=== PATIENT | male | born 1965 | race Two or more races ===

== ENCOUNTER 2019-10-20 08:00 | Inpatient (IN) | payer OTHER ==
[~2019-10-20] VITALS: Ht 170.2 cm; Wt 111.0 kg
[2019-10-20 08:46] LABS: BASO % 0 % (0-3); EOS % 0 % (0-3); HEMATOCRIT 46.6 % (39.0-53.0); HEMOGLOBIN 16.5 g/dL (13.0-17.5); LYMPH # 0.6 x10^3/uL (1.0-4.8); LYMPH % 6 % (24-48); MEAN CORPUSCULAR HEMOGLOBIN 36 pg (25-35); MEAN CORPUSCULAR HGB CONC 35 g/dL (31-37); MEAN CORPUSCULAR VOLUME 101 fL (79-100); MONO # 0.4 x10^3/uL (0.0-1.1); MONO % 3 % (0-9); NEUT % 91 % (31-73); PLATELET COUNT 100 x10^3/uL (140-400); RED BLOOD COUNT 4.61 x10^6/uL (4.30-5.70); RED CELL DISTRIBUTION WIDTH 12.7 % (11.5-14.5); WHITE BLOOD COUNT 11.1 x10^3/uL (4.0-11.0)
[2019-10-20 08:58] LABS: PROTHROMBIN TIME PATIENT 17.4 SEC (11.7-14.0)
[2019-10-20 08:59] LABS: FIBRINOGEN 889 mg/dL (200-440)
[2019-10-20 09:00] LABS: PARTIAL THROMBOPLASTIN TIME 46 SEC (24-38)
[2019-10-20 09:02] LABS: D-DIMER 3.62 ug/mlFEU (0.00-0.50)
[2019-10-20 09:10] LABS: CALCIUM 7.9 mg/dL (8.5-10.1); CREATININE 1.2 mg/dL (0.7-1.3); GFR 63.6; POTASSIUM 3.3 mmol/L (3.5-5.1)
[2019-10-20 09:15] LABS: ALBUMIN 2.5 g/dL (3.4-5.0); ALBUMIN/GLOBULIN RATIO 0.5 (1.0-1.7); MAGNESIUM 1.5 mg/dL (1.8-2.4); TOTAL BILIRUBIN 2.6 mg/dL (0.2-1.0); TOTAL PROTEIN 7.4 g/dL (6.4-8.2)
--- NOTE | 2019-10-20 09:17 | RAD ---
PORTABLE CHEST 1V 10/20/2019 8:06 AM INDICATION: Chest pain, Covid positive COMPARISON: None available TECHNIQUE: Portable frontal view of the chest is provided. FINDINGS: The cardiomediastinal silhouette is within normal limits. There is elevation the right hemidiaphragm. Patchy airspace disease in the right lung base may represent pulmonary infiltrate in appropriate clinical setting. There are no significant pleural effusions. There is no pulmonary vascular congestion. No pneumothorax. No suspicious osseous abnormality. IMPRESSION: Patchy airspace disease at the right lung base may represent pulmonary infiltrate in the appropriate clinical setting. Recommend short-term follow-up two-view chest radiograph to ensure resolution. Electronically signed by: Viviana Jara MD (10/20/2019 9:14 AM) [facility]
[2019-10-20] MEDS ORDERED: IV NORMAL SALINE 1000ML BAG 1,000 ML IV ONE (09:45)
[2019-10-20] MEDS ORDERED: MAGNESIUM SULFATE 2GM 50 ML IV ONE (09:45)
[2019-10-20] MEDS ORDERED: AZITHRMYCN 500MG IVPB FOR OMNI 250 ML IV ONE (09:45)
[2019-10-20] MEDS ORDERED: cefTRIAXone IV Push 1 GM VIAL. IVP ONE (09:45)
[2019-10-20] MEDS ORDERED: POTASSIUM CHLORIDE 20 MEQ TABLET.ER. PO ONE ×2 (10:45)
[2019-10-20] MEDS ORDERED: DEXTROSE 50% 25 GM / 50ML DISP.SYRIN. IV PRN (10:45)
--- NOTE | 2019-10-20 10:45 | PDOC1 ---
History and Physical Date of Admission Date of Admission DATE: 10/20/19 TIME: 10:40 Identification/Chief Complaint Chief Complaint seen in er with soa, low grade temp at home 54 year old male who presented to ER today for evaluation of cough, trouble breathing for about 4 days. . Patient said when he coughs it hurts. Patient is a smoker. Patient is not on oxygen at home, patient denies any history of hypertension or diabetes. not sure if he been exposed to anybody who tested positive for COVID-19. Past Medical History Past Medical History Past Medical History Past Medical History: No Pertinent History Past Surgical History: No Surgical History Smoking Status: Current Every Day Smoker Alcohol Use: Occasionally FHX OBESITY Cardiovascular: No pertinent hx Endocrine: Diabetes Family History Family History: High Cholestrol, Hypertension Social History Smoke: <1 pack per day ALCOHOL: occassional Drugs: None Current Medications Current Medications Current Medications Ceftriaxone Sodium (Rocephin) 1 gm 1X ONCE IVP Last administered on 10/20/19at 10:23; Start 10/20/19 at 09:45; Stop 10/20/19 at 09:58; Status DC Azithromycin 250 ml @ 250 mls/hr 1X ONCE IV Last administered on 10/20/19at 09:45; Start 10/20/19 at 09:45; Stop 10/20/19 at 10:44 Sodium Chloride 1,000 ml @ 1,000 mls/hr 1X ONCE IV Last administered on 10/20/19at 10:20; Start 10/20/19 at 09:45; Stop 10/20/19 at 10:44 Magnesium Sulfate 50 ml @ 25 mls/hr 1X ONCE IV Last administered on 10/20/19at 10:21; Start 10/20/19 at 09:45; Stop 10/20/19 at 11:44 Allergies Allergies: Coded Allergies: No Known Drug Allergies (Unverified , 10/20/19) ROS Review of System difficulty breathing associated with subjective fevers, chills, Constitutional: Positive for fever or chills. [] Eyes: Denies change in visual acuity. [] HENT: Denies nasal congestion or sore throat. [] Respiratory: Positive for cough or shortness of breath. [] Cardiovascular: Positive for chest pain with cough , no edema. [] GI: Denies abdominal pain, nausea, vomiting, bloody stools or diarrhea. [] : Denies dysuria. [] Musculoskeletal: Denies back pain or joint pain. [] Integument: Denies rash. [] Neurologic: Denies headache, focal weakness or sensory changes. [] Endocrine: Denies polyuria or polydipsia. [] Lymphatic: Denies swollen glands. [] Psychiatric: Denies depression or anxiety. [] 14 pt ros otherwise neg General: YES: Chills ENDOCRINE: No: Breast Changes, Galactorrhea, Hair Pattern Changes, Hot Flashes, Malaise/lethargy, Mood Swings, Palpitations, Polydipsia/polyuria, Skin Changes, Temperature Intolerance, Unexpected Weight Changes, Other Respiratory: YES: Cough, Pleuritic Pain, Shortness of breath, SOB with excertion Cardiovascular: yes Chest Pain, yes Other (pain with cough) Gastrointestinal: No Nausea, No Vomiting, No Abdominal Pain, No Diarrhea, No Constipation, No Melena, No Hematochezia, No Other Physical Exam Physical Exam Constitutional: Well developed, well nourished, no acute distress, non-toxic appearance. [] HENT: Normocephalic, atraumatic, bilateral external ears normal, oropharynx moist, no oral exudates, nose normal. [] Eyes: PERRLA, EOMI, conjunctiva normal, no discharge. [] Neck: Normal range of motion, no tenderness, supple, no stridor. [] Cardiovascular:Heart rate regular rhythm, no murmur [] Lungs & Thorax: Bilateral breath sounds clear to auscultation [] Abdomen: Bowel sounds normal, soft, no tenderness, no masses, no pulsatile masses. [] Skin: Warm, dry, no erythema, no rash. [] Back: No tenderness, no CVA tenderness. [] Extremities: No tenderness, no cyanosis, no clubbing, ROM intact, no edema. [] Neurologic: Alert and oriented X 3, normal motor function, normal sensory function, no focal deficits noted. [] Psychologic: Affect normal, judgement normal, mood normal. [] General: Alert, Oriented X3, Cooperative, No acute distress HEENT: Mucous membr. moist/pink Heart: RRR, no murmurs Abdomen: Soft Rectal Exam: not examined PELVIC: Examination not indicated Extremities: No cyanosis, No edema Neuro: Normal speech, Cranial nerves 3-12 NL Psych/Mental Status: Mental status NL, Mood NL Vitals Vitals Vital Signs Date Time Temp Pulse Resp B/P (MAP) Pulse Ox O2 Delivery O2 Flow Rate FiO2 10/20/19 08:34 100.0 107 16 131/84 (100) 93 Room Air 100.0 Labs Labs Laboratory Tests Test 10/20/19 08:22 White Blood Count 11.1 x10^3/uL (4.0-11.0) Red Blood Count 4.61 x10^6/uL (4.30-5.70) Hemoglobin 16.5 g/dL (13.0-17.5) Hematocrit 46.6 % (39.0-53.0) Mean Corpuscular Volume 101 fL (79-100) Mean Corpuscular Hemoglobin 36 pg (25-35) Mean Corpuscular Hemoglobin Concent 35 g/dL (31-37) Red Cell Distribution Width 12.7 % (11.5-14.5) Platelet Count 100 x10^3/uL (140-400) Neutrophils (%) (Auto) 91 % (31-73) Lymphocytes (%) (Auto) 6 % (24-48) Monocytes (%) (Auto) 3 % (0-9) Eosinophils (%) (Auto) 0 % (0-3) Basophils (%) (Auto) 0 % (0-3) Neutrophils # (Auto) 10.0 x10^3/uL (1.8-7.7) Lymphocytes # (Auto) 0.6 x10^3/uL (1.0-4.8) Monocytes # (Auto) 0.4 x10^3/uL (0.0-1.1) Eosinophils # (Auto) 0.0 x10^3/uL (0.0-0.7) Basophils # (Auto) 0.0 x10^3/uL (0.0-0.2) Prothrombin Time 17.4 SEC (11.7-14.0) Prothromb Time International Ratio 1.5 (0.8-1.1) Activated Partial Thromboplast Time 46 SEC (24-38) Fibrinogen 889 mg/dL (200-440) D-Dimer (Lexie) 3.62 ug/mlFEU (0.00-0.50) Sodium Level 132 mmol/L (136-145) Potassium Level 3.3 mmol/L (3.5-5.1) Chloride Level 97 mmol/L (98-107) Carbon Dioxide Level 20 mmol/L (21-32) Anion Gap 15 (6-14) Blood Urea Nitrogen 17 mg/dL (8-26) Creatinine 1.2 mg/dL (0.7-1.3) Estimated GFR (Cockcroft-Gault) 63.6 BUN/Creatinine Ratio 14 (6-20) Glucose Level 263 mg/dL (70-99) Calcium Level 7.9 mg/dL (8.5-10.1) Magnesium Level 1.5 mg/dL (1.8-2.4) Total Bilirubin 2.6 mg/dL (0.2-1.0) Aspartate Amino Transf (AST/SGOT) 55 U/L (15-37) Alanine Aminotransferase (ALT/SGPT) 24 U/L (16-63) Alkaline Phosphatase 125 U/L (46-116) Troponin I Quantitative < 0.017 ng/mL (0.000-0.055) IH-Mcr-E-Type Natriuretic Peptide 208 pg/mL (0-124) Total Protein 7.4 g/dL (6.4-8.2) Albumin 2.5 g/dL (3.4-5.0) Albumin/Globulin Ratio 0.5 (1.0-1.7) Lipase 345 U/L (73-393) Laboratory Tests Test 10/20/19 08:22 White Blood Count 11.1 x10^3/uL (4.0-11.0) Red Blood Count 4.61 x10^6/uL (4.30-5.70) Hemoglobin 16.5 g/dL (13.0-17.5) Hematocrit 46.6 % (39.0-53.0) Mean Corpuscular Volume 101 fL (79-100) Mean Corpuscular Hemoglobin 36 pg (25-35) Mean Corpuscular Hemoglobin Concent 35 g/dL (31-37) Red Cell Distribution Width 12.7 % (11.5-14.5) Platelet Count 100 x10^3/uL (140-400) Neutrophils (%) (Auto) 91 % (31-73) Lymphocytes (%) (Auto) 6 % (24-48) Monocytes (%) (Auto) 3 % (0-9) Eosinophils (%) (Auto) 0 % (0-3) Basophils (%) (Auto) 0 % (0-3) Neutrophils # (Auto) 10.0 x10^3/uL (1.8-7.7) Lymphocytes # (Auto) 0.6 x10^3/uL (1.0-4.8) Monocytes # (Auto) 0.4 x10^3/uL (0.0-1.1) Eosinophils # (Auto) 0.0 x10^3/uL (0.0-0.7) Basophils # (Auto) 0.0 x10^3/uL (0.0-0.2) Prothrombin Time 17.4 SEC (11.7-14.0) Prothromb Time International Ratio 1.5 (0.8-1.1) Activated Partial Thromboplast Time 46 SEC (24-38) Fibrinogen 889 mg/dL (200-440) D-Dimer (Lexie) 3.62 ug/mlFEU (0.00-0.50) Sodium Level 132 mmol/L (136-145) Potassium Level 3.3 mmol/L (3.5-5.1) Chloride Level 97 mmol/L (98-107) Carbon Dioxide Level 20 mmol/L (21-32) Anion Gap 15 (6-14) Blood Urea Nitrogen 17 mg/dL (8-26) Creatinine 1.2 mg/dL (0.7-1.3) Estimated GFR (Cockcroft-Gault) 63.6 BUN/Creatinine Ratio 14 (6-20) Glucose Level 263 mg/dL (70-99) Calcium Level 7.9 mg/dL (8.5-10.1) Magnesium Level 1.5 mg/dL (1.8-2.4) Total Bilirubin 2.6 mg/dL (0.2-1.0) Aspartate Amino Transf (AST/SGOT) 55 U/L (15-37) Alanine Aminotransferase (ALT/SGPT) 24 U/L (16-63) Alkaline Phosphatase 125 U/L (46-116) Troponin I Quantitative < 0.017 ng/mL (0.000-0.055) QB-Von-M-Type Natriuretic Peptide 208 pg/mL (0-124) Total Protein 7.4 g/dL (6.4-8.2) Albumin 2.5 g/dL (3.4-5.0) Albumin/Globulin Ratio 0.5 (1.0-1.7) Lipase 345 U/L (73-393) Images Images PORTABLE CHEST 1V 10/20/2019 8:06 AM INDICATION: Chest pain, Covid positive COMPARISON: None available TECHNIQUE: Portable frontal view of the chest is provided. FINDINGS: The cardiomediastinal silhouette is within normal limits. There is elevation the right hemidiaphragm. Patchy airspace disease in the right lung base may represent pulmonary infiltrate in appropriate clinical setting. There are no significant pleural effusions. There is no pulmonary vascular congestion. No pneumothorax. No suspicious osseous abnormality. IMPRESSION: Patchy airspace disease at the right lung base may represent pulmonary infiltrate in the appropriate clinical setting. Recommend short-term follow-up two-view chest radiograph to ensure resolution. Electronically signed by: Marilee Jara MD (10/20/2019 9:14 AM) [facility] DICTATED and SIGNED BY: MARILEE JARA MD DATE: 10/20/19913 VTE Prophylaxis Ordered VTE Prophylaxis Devices: Yes VTE Pharmacological Prophylaxi: No Assessment/Plan Assessment/Plan IMPRESSION: Patchy airspace disease at the right lung base may represent pulmonary infiltrate /PNEUMONIA diabetes HYPOKALEMIA Morbid obesity transaminitis Tobacco abuse disorder acute hypoxic resp failure Mild acute kidney injury, likely due to dehydration. Could be related to COVID- 19. Hypomagnesemia. Moderate protein-calorie malnutrition. Thrombocytopenia. PLAN ADMIT COVID-19 SCREEN Consult pulm iv zithromax, rocephin blood cult o2 support dvt propphylaxis accuchecks ID CONSULT acute hepatitis dx panel 74 MIN pt exam, chart review, > 50% of time spent with exam, chart review, pt care coordination Justicifation of Admission Dx: Justifications for Admission: Justification of Admission Dx: Yes CHF: Sev. Electrolyte Abnormal Comminuty Aquired Pneumonia: Respiratory Findings Acute COPD Exacerbation: Acute COPD Exacerbation JOSHUA WASSERMAN MD Oct 20, 2019 10:45
--- NOTE | 2019-10-20 10:51 | PHYS DOC ---
Past Medical History Past Medical History: No Pertinent History Past Surgical History: No Surgical History Smoking Status: Current Every Day Smoker Alcohol Use: Occasionally General Adult EDM: Chief Complaint: CHEST PAIN HPI: HPI: Patient is a 54 year old male who presented to ER today for evaluation of cough, trouble breathing for about 4 days. He did not check his temperature at home. Patient said when he coughs it hurts. Patient is a smoker. Patient is not on oxygen at home, patient denies any history of hypertension or diabetes. Patient is not sure if he been exposed to anybody who tested positive for COVID- 19. Review of Systems: Review of Systems: Constitutional: Positive for fever or chills. [] Eyes: Denies change in visual acuity. [] HENT: Denies nasal congestion or sore throat. [] Respiratory: Positive for cough or shortness of breath. [] Cardiovascular: Positive for chest pain , no edema. [] GI: Denies abdominal pain, nausea, vomiting, bloody stools or diarrhea. [] : Denies dysuria. [] Musculoskeletal: Denies back pain or joint pain. [] Integument: Denies rash. [] Neurologic: Denies headache, focal weakness or sensory changes. [] Endocrine: Denies polyuria or polydipsia. [] Lymphatic: Denies swollen glands. [] Psychiatric: Denies depression or anxiety. [] Heart Score: HEART Score for Chest Pain: HEART Score for Chest Pain Response (Comments) Value History Slighlty/Non-Suspicious 0 ECG Nonspecific Repolarizatio 1 Age >45 - < 65 1 Risk Factors 1 or 2 Risk Factors 1 Troponin < Normal Limit 0 Total 3 Risk Factors: Risk Factors: DM, Current or recent (<one month) smoker, HTN, HLP, family history of CAD, obesity. Risk Scores: Score 0 - 3: 2.5% MACE over next 6 weeks - Discharge Home Score 4 - 6: 20.3% MACE over next 6 weeks - Admit for Clinical Observation Score 7 - 10: 72.7% MACE over next 6 weeks - Early Invasive Strategies Current Medications: Current Medications Medications (Trade) Dose Ordered Sig/Maureen Start Time Stop Time Status Last Admin Dose Admin Azithromycin 250 ml @ 250 mls/hr 1X ONCE 10/20/19 09:45 10/20/19 10:44 DC 10/20/19 09:45 250 MLS/HR Ceftriaxone Sodium (Rocephin) 1 gm 1X ONCE 10/20/19 09:45 10/20/19 09:58 DC 10/20/19 10:23 1 GM Dextrose (Dextrose 50%-Water Syringe) 12.5 gm PRN Q15MIN PRN 10/20/19 10:45 UNV Insulin Human Lispro (HumaLOG) 0-5 UNITS TIDWMEALS 10/20/19 12:00 UNV Magnesium Sulfate 50 ml @ 25 mls/hr 1X ONCE 10/20/19 09:45 10/20/19 11:44 10/20/19 10:21 25 MLS/HR Potassium Chloride (Klor-Con) 20 meq 1X ONCE 10/20/19 10:45 10/20/19 10:46 Sodium Chloride 1,000 ml @ 1,000 mls/hr 1X ONCE 10/20/19 09:45 10/20/19 10:44 DC 10/20/19 10:20 1,000 MLS/HR Allergies: Allergies: Allergies Coded Allergies Type Severity Reaction Last Updated Verified No Known Drug Allergies 10/20/19 No Physical Exam: PE: Constitutional: Well developed, well nourished, no acute distress, non-toxic appearance. [] HENT: Normocephalic, atraumatic, bilateral external ears normal, oropharynx moist, no oral exudates, nose normal. [] Eyes: PERRLA, EOMI, conjunctiva normal, no discharge. [] Neck: Normal range of motion, no tenderness, supple, no stridor. [] Cardiovascular rapid rate, regular rhythm, no murmur [] Lungs & Thorax: Bilateral breath sounds clear to auscultation [] Abdomen: Bowel sounds normal, soft, no tenderness, no masses, no pulsatile masses. [] Skin: Warm, dry, no erythema, no rash. [] Back: No tenderness, no CVA tenderness. [] Extremities: No tenderness, no cyanosis, no clubbing, ROM intact, no edema. [] Neurologic: Alert and oriented X 3, normal motor function, normal sensory function, no focal deficits noted. [] Psychologic: Affect normal, judgement normal, mood normal. [] Current Patient Data: Labs: Laboratory Tests Test 10/20/19 08:22 White Blood Count 11.1 x10^3/uL (4.0-11.0) H Red Blood Count 4.61 x10^6/uL (4.30-5.70) Hemoglobin 16.5 g/dL (13.0-17.5) Hematocrit 46.6 % (39.0-53.0) Mean Corpuscular Volume 101 fL (79-100) H Mean Corpuscular Hemoglobin 36 pg (25-35) H Mean Corpuscular Hemoglobin Concent 35 g/dL (31-37) Red Cell Distribution Width 12.7 % (11.5-14.5) Platelet Count 100 x10^3/uL (140-400) L Neutrophils (%) (Auto) 91 % (31-73) H Lymphocytes (%) (Auto) 6 % (24-48) L Monocytes (%) (Auto) 3 % (0-9) Eosinophils (%) (Auto) 0 % (0-3) Basophils (%) (Auto) 0 % (0-3) Neutrophils # (Auto) 10.0 x10^3/uL (1.8-7.7) H Lymphocytes # (Auto) 0.6 x10^3/uL (1.0-4.8) L Monocytes # (Auto) 0.4 x10^3/uL (0.0-1.1) Eosinophils # (Auto) 0.0 x10^3/uL (0.0-0.7) Basophils # (Auto) 0.0 x10^3/uL (0.0-0.2) Platelet Estimate Pending Prothrombin Time 17.4 SEC (11.7-14.0) H Prothrombin Time INR 1.5 (0.8-1.1) H Activated Partial Thromboplast Time 46 SEC (24-38) H Fibrinogen 889 mg/dL (200-440) H D-Dimer (Lexie) 3.62 ug/mlFEU (0.00-0.50) H Sodium Level 132 mmol/L (136-145) L Potassium Level 3.3 mmol/L (3.5-5.1) L Chloride Level 97 mmol/L (98-107) L Carbon Dioxide Level 20 mmol/L (21-32) L Anion Gap 15 (6-14) H Blood Urea Nitrogen 17 mg/dL (8-26) Creatinine 1.2 mg/dL (0.7-1.3) Estimated GFR (Cockcroft-Gault) 63.6 BUN/Creatinine Ratio 14 (6-20) Glucose Level 263 mg/dL (70-99) H Calcium Level 7.9 mg/dL (8.5-10.1) L Magnesium Level 1.5 mg/dL (1.8-2.4) L Total Bilirubin 2.6 mg/dL (0.2-1.0) H Aspartate Amino Transferase (AST) 55 U/L (15-37) H Alanine Aminotransferase (ALT) 24 U/L (16-63) Alkaline Phosphatase 125 U/L (46-116) H Troponin I Quantitative < 0.017 ng/mL (0.000-0.055) NB-Mml-G-Type Natriuretic Peptide 208 pg/mL (0-124) H Total Protein 7.4 g/dL (6.4-8.2) Albumin 2.5 g/dL (3.4-5.0) L Albumin/Globulin Ratio 0.5 (1.0-1.7) L Lipase 345 U/L (73-393) Laboratory Tests 10/20/19 08:22 Laboratory Tests 10/20/19 08:22 Vital Signs: Vital Signs Date Time Temp Pulse Resp B/P (MAP) Pulse Ox O2 Delivery O2 Flow Rate FiO2 10/20/19 08:34 100.0 107 16 131/84 (100) 93 Room Air 100.0 EKG: EKG: EKG was done at 820, heart rate of 111 bpm, sinus tachycardia, no ST segment evaluation. [] Radiology/Procedures: Radiology/Procedures: [facility] [id number] [place], [place] [id number] IMAGING REPORT Signed PATIENT: ZOEY STACYACCOUNT: [id number] : 1965 LOCATION: ER AGE: 54 SEX: M EXAM STATUS: REG ER ORD. PHYSICIAN: DAVID DE LEON DO REASON: chest pain, covid + PROCEDURE: PORTABLE CHEST 1V PORTABLE CHEST 1V 10/20/2019 8:06 AM INDICATION: Chest pain, Covid positive COMPARISON: None available TECHNIQUE: Portable frontal view of the chest is provided. FINDINGS: The cardiomediastinal silhouette is within normal limits. There is elevation the right hemidiaphragm. Patchy airspace disease in the right lung base may represent pulmonary infiltrate in appropriate clinical setting. There are no significant pleural effusions. There is no pulmonary vascular congestion. No pneumothorax. No suspicious osseous abnormality. IMPRESSION: Patchy airspace disease at the right lung base may represent pulmonary infiltrate in the appropriate clinical setting. Recommend short-term follow-up two-view chest radiograph to ensure resolution. Electronically signed by: Marilee Anders MD (10/20/2019 9:14 AM) [facility] DICTATED and SIGNED BY: MARILEE ANDERS MD DATE: 10/20/19913 Course & Med Decision Making: Course & Med Decision Making Pertinent Labs and Imaging studies reviewed. (See chart for details) [] Dragon Disclaimer: Dragon Disclaimer: This electronic medical record was generated, in whole or in part, using a voice recognition dictation system. Departure Departure Impression: Primary Impression: Pneumonia Additional Impression: Suspected 2019-nCoV infection Disposition: ADMITTED INPATIENT Admitting Physician: KALLIE (Dr. Gracia) Condition: STABLE Referrals: NON,STAFF (PCP) Justicifation of Admission Dx: Justifications for Admission: Justification of Admission Dx: Yes Comminuty Aquired Pneumonia: Hypoxemia DAVID DE LEON DO Oct 20, 2019 10:51
[2019-10-20] MEDS ORDERED: IBUPROFEN 400 MG TABLET. PO ONE (11:00)
[2019-10-20] MEDS ORDERED: 0.9 % SODIUM CHLORIDE 10 ML DISP.SYRIN. IV PRN (11:00)
[2019-10-20] MEDS ORDERED: SODIUM PHOSPHATES 19/7GM 133 ML ENEMA. PR PRN (11:00)
[2019-10-20] MEDS ORDERED: MAG HYDROX/ALUMINUM HYD/SIMETH 30 ML ORAL.SUSP PO PRN (11:00)
[2019-10-20] MEDS ORDERED: guaiFENesin ORAL 200 MG/10 ML LIQUID. PO PRN (11:00)
[2019-10-20] MEDS ORDERED: cloNIDine HCL 0.1 MG TABLET PO PRN (11:00)
[2019-10-20] MEDS ORDERED: ALBUTEROL SULFATE 2.5 MG/3 ML NEBU. NEB PRN (11:00)
[2019-10-20] MEDS ORDERED: ONDANSETRON PF 4 MG/2 ML VIAL. IV PRN (11:00)
[2019-10-20] MEDS ORDERED: DOCUSATE SODIUM 100 MG CAPSULE. PO PRN (11:00)
[2019-10-20 11:34] LABS: % BANDS 52 % (0-9); % EOS 1 % (0-5); % LYMPHS 11 % (24-48); % MONOS 3 % (0-10); % SEGS 33 % (35-66); PLT ESTIMATE ADEQUATE (ADEQUATE)
[2019-10-20] MEDS: INSULIN LISPRO 300 UNITS/3 ML VIAL. SQ SCH ×2 (12:00→17:22)
--- NOTE | 2019-10-20 12:46 | PDOC ---
Infectious Disease Note Vital Sign Vital Signs Vital Signs Date Time Temp Pulse Resp B/P (MAP) Pulse Ox O2 Delivery O2 Flow Rate FiO2 10/20/19 11:00 108 152/80 (104) 96 Nasal Cannula 3.0 10/20/19 08:34 100.0 16 100.0 Labs Lab Laboratory Tests Test 10/20/19 08:22 10/20/19 10:52 White Blood Count 11.1 x10^3/uL (4.0-11.0) Red Blood Count 4.61 x10^6/uL (4.30-5.70) Hemoglobin 16.5 g/dL (13.0-17.5) Hematocrit 46.6 % (39.0-53.0) Mean Corpuscular Volume 101 fL (79-100) Mean Corpuscular Hemoglobin 36 pg (25-35) Mean Corpuscular Hemoglobin Concent 35 g/dL (31-37) Red Cell Distribution Width 12.7 % (11.5-14.5) Platelet Count 100 x10^3/uL (140-400) Neutrophils (%) (Auto) 91 % (31-73) Lymphocytes (%) (Auto) 6 % (24-48) Monocytes (%) (Auto) 3 % (0-9) Eosinophils (%) (Auto) 0 % (0-3) Basophils (%) (Auto) 0 % (0-3) Neutrophils # (Auto) 10.0 x10^3/uL (1.8-7.7) Lymphocytes # (Auto) 0.6 x10^3/uL (1.0-4.8) Monocytes # (Auto) 0.4 x10^3/uL (0.0-1.1) Eosinophils # (Auto) 0.0 x10^3/uL (0.0-0.7) Basophils # (Auto) 0.0 x10^3/uL (0.0-0.2) Segmented Neutrophils % 33 % (35-66) Band Neutrophils % 52 % (0-9) Lymphocytes % 11 % (24-48) Monocytes % 3 % (0-10) Eosinophils % 1 % (0-5) Platelet Estimate Adequate (ADEQUATE) Prothrombin Time 17.4 SEC (11.7-14.0) Prothromb Time International Ratio 1.5 (0.8-1.1) Activated Partial Thromboplast Time 46 SEC (24-38) Fibrinogen 889 mg/dL (200-440) D-Dimer (Lexie) 3.62 ug/mlFEU (0.00-0.50) Sodium Level 132 mmol/L (136-145) Potassium Level 3.3 mmol/L (3.5-5.1) Chloride Level 97 mmol/L (98-107) Carbon Dioxide Level 20 mmol/L (21-32) Anion Gap 15 (6-14) Blood Urea Nitrogen 17 mg/dL (8-26) Creatinine 1.2 mg/dL (0.7-1.3) Estimated GFR (Cockcroft-Gault) 63.6 BUN/Creatinine Ratio 14 (6-20) Glucose Level 263 mg/dL (70-99) Calcium Level 7.9 mg/dL (8.5-10.1) Magnesium Level 1.5 mg/dL (1.8-2.4) Total Bilirubin 2.6 mg/dL (0.2-1.0) Aspartate Amino Transf (AST/SGOT) 55 U/L (15-37) Alanine Aminotransferase (ALT/SGPT) 24 U/L (16-63) Alkaline Phosphatase 125 U/L (46-116) Troponin I Quantitative < 0.017 ng/mL (0.000-0.055) LB-Bnc-D-Type Natriuretic Peptide 208 pg/mL (0-124) Total Protein 7.4 g/dL (6.4-8.2) Albumin 2.5 g/dL (3.4-5.0) Albumin/Globulin Ratio 0.5 (1.0-1.7) Lipase 345 U/L (73-393) Lactic Acid Level 3.0 mmol/L (0.4-2.0) Objective Assessment Pneumonia Lactic acidosis Bandemia Hyperbilirubinemia Thrombocytopenia Electrolyte imbalance Hyperglycemia Tobacco dependency Obesity Plan Plan of Care Rocephin and azithromycin Repeat labs in am Follow-up BC Electrolytes per primary Maintain aspiration precautions Droplet precautions till COVID-19 r/o D/w nursing Thank you [id number] Patient seen. Chart reviewed. Case discussed with [employer]. Agree with above plan/. FÉLIX BEATTY APRN Oct 20, 2019 12:46 ANDREAS QUINTANILLA MD Oct 20, 2019 20:47
[2019-10-20] MEDS: IV NORMAL SALINE 1000ML BAG 1,000 ML IV SCH (12:57)
[2019-10-20] MEDS: ENOXAPARIN 40 MG/0.4 ML SYRINGE. SQ SCH (12:58)
--- NOTE | 2019-10-20 13:15 | CONS ---
DATE OF CONSULTATION: 10/20/2019 Nathan Santos APRN, dictating for Andreas Quintanilla MD, Infectious Disease. REFERRING PHYSICIAN: Elver Gracia MD REASON FOR CONSULTATION: Pneumonia. HISTORY OF PRESENT ILLNESS: This patient is a 54-year-old male with no significant past medical history, who over the last 4 days has developed worsening cough, difficulty breathing associated with subjective fevers, chills, and sweats. He took Tylenol, ibuprofen and cough medicine with minimal relief. On arrival to the ER, he had a temperature of 100.0. WBC 11,100; segs 33%; bands 52%. Lactic acid 3.0. He was placed on 3 liters of oxygen. Chest x-ray showed patchy airspace disease in the right lung base. He was dosed with ceftriaxone and azithromycin. The patient says he is feeling a little bit better. His oxygen sats are up to 96% on 2 liters. He is having less work of breathing. He has complaints of mild localized chest discomfort, sore throat and occasional headache. He denies sinus congestion or drainage. He denies hospitalizations or antibiotic use within the last year. He says his family members are well. He has no known exposure to COVID-19. He denies traveling. PAST MEDICAL HISTORY: Obesity. PAST SURGICAL HISTORY: Denies surgical history. FAMILY HISTORY: Positive for diabetes. SOCIAL HISTORY: The patient is and lives at home. He has 2 sons. He also cares for a couple cats and dogs. He is a smoker and drinks 2-4 cans of beer a week. He is currently employed with waste management. ALLERGIES: No known drug allergies. MEDICATIONS: Reviewed on JUL and includes one-time dose of azithromycin and one-time dose of ceftriaxone. REVIEW OF SYSTEMS: Per HPI, otherwise all other review of systems are negative. PHYSICAL EXAMINATION: VITAL SIGNS: Temperature 100.0, blood pressure 152/80, heart rate 108, respiratory rate 16, pulse oximetry is 96% on 3 liters oxygen. BMI 38.3. GENERAL: The patient is propped up in bed, alert, appears comfortable. HEENT: Pupils equally round. Oropharynx: [place] and moist. No lesions seen. NECK: Supple. LUNGS: Coarse right lower lobe. No accessory muscle use. HEART: S1 and S2, regular. ABDOMEN: Obese, soft, nontender. No rebound. Bowel sounds present. EXTREMITIES: No gross edema or cyanosis. SKIN: Warm to touch. No signs of rash. NEUROLOGIC: Alert and answering questions appropriately. LABORATORY DATA: WBC 11.1; hemoglobin 16.5; platelets 100,000; segs 33%; bands 52%. Sodium 132, potassium 3.3, creatinine 1.2, BUN 17, glucose 263. Lactic acid 3.0. Total bilirubin 2.6. Magnesium 1.5, calcium 7.9. AST 55, ALT 24, alkaline phosphatase 125. Troponin less than 0.017. BNP 208. Albumin 2.5. Lipase 345. COVID-19 and blood cultures pending. Chest x-ray showed patchy airspace disease in the right lung base. ASSESSMENT: 1. Pneumonia. 2. Lactic acidosis. 3. Bandemia. 4. Hyperbilirubinemia. 5. Thrombocytopenia. 6. Electrolyte imbalances. 7. Hyperglycemia. 8. Tobacco dependency. 9. Obesity. PLAN: 1. Continue ceftriaxone and azithromycin. 2. We will repeat labs in the morning. 3. Follow up on blood culture results. 4. Maintain aspiration precautions. 5. Droplet precautions until COVID-19 rule out. 6. Discussed with nursing. Thank you, Dr. Gracia, for asking us to participate in this patient's care. Should you have further questions or concerns, please call. ANDREAS QUINTANILLA MD DR: SIMON/autumn JOB#: [id number] / [id number]
--- NOTE | 2019-10-20 14:12 | CONS ---
DATE OF CONSULTATION: PULMONARY CONSULTATION ATTENDING PHYSICIAN: Dr. Gracia. REASON FOR CONSULTATION: Pneumonia, hypoxia, suspected COVID. HISTORY OF PRESENT ILLNESS: The patient is a 54-year-old morbidly obese male who speaks minimal Panamanian. His BMI is 38.3. He was brought into the hospital complaining of cough for 3-4 days. He had a fever He had a chest wall pain with coughing The patient is a smoker, smoked at least for 30 years. He is not on home oxygen. He had some nausea and diarrhea. Denies any history of sleep apnea. Denies any obvious exposure to COVID-19. He is a lunch truck operator by profession. Chest x-ray was reviewed and it shows a faint infiltrate, interstitial type at the right base. The patient initially was on room air, but now requiring 3 liters of oxygen with saturation of 96%. I was able to do the tele-consultation with the help of Serbian interpretation. PAST MEDICAL HISTORY: Significant for tobaccoism, suspect underlying COPD, underlying obesity. SURGERIES: No recent surgery. SOCIAL HISTORY: Smoker for 30+ years and occasional alcohol. REVIEW OF SYSTEMS: Unable to obtain due to language barrier, but pertinent positives discussed in my history of present illness. MEDICATIONS: Reviewed as listed in the MRAD including antibiotics and Lovenox for DVT prophylaxis. PHYSICAL EXAMINATION: VITAL SIGNS: T-max is 100, blood pressure 152/80, pulse ox 96% on 3 liters. GENERAL: Visual exam done due to COVID pandemic. No obvious rash. No obvious respiratory distress. He is obese. EXTREMITIES: No leg edema. LABORATORY DATA: Reviewed. White cell count 11.1, hemoglobin 15.6 and platelets are 100. BUN 17, creatinine 1.2, bilirubin 2.6, AST 55 and ALT 24. Albumin 2.5. IMPRESSION: 1. Acute hypoxic respiratory failure secondary to suspected COVID-19 pneumonia. 2. Underlying obesity. 3. Long history of tobacco use, suspect underlying chronic obstructive pulmonary disease. 4. Abnormal LFTs, could be related to COVID infection. 5. Mild acute kidney injury, likely due to dehydration. Could be related to COVID-19. 6. Hypomagnesemia. 7. Moderate protein-calorie malnutrition. 8. Thrombocytopenia. RECOMMENDATIONS: 1. Continue with present oxygen to keep saturation 92 and above. 2. Broad spectrum antibiotic per Infectious Disease. 3. Lovenox for DVT prophylaxis. 4. Monitor LFTs. 5. Monitor platelet count. 6. IV hydration. 7. COVID-19 has been ordered and is pending. 8. We will follow the response to treatment. 9. Discussed with RN. This patient was seen during the COVID-19 pandemic. COVID-19 diagnosis was suspected on initial presentation. BRANDEN PARTIDA MD DR: FABIENNE/autumn JOB#: [id number] / [id number]
[2019-10-20 15:08] VITALS: BP 107/70
[2019-10-20 19:20] VITALS: BP 145/80
[2019-10-20] MEDS: ACETAMINOPHEN 325 MG TABLET. PO PRN (19:28)
[2019-10-20 22:50] VITALS: BP 128/74
--- NOTE | 2019-10-20 23:40 | NUR ---
RN able to sit down to chart on pt - when charting sepsis - RN noted that pt triggered severe sepsis. Sepsis RN paged. NohemyRN returned call - this RN made Nohemy of pt status and triggering severe sepsis. Nohemy suggested ordering a STAT blood culture and lactic. Also suggested calling Dr Molina to see if any further orders needed. At [phone] - Dr rn documentation specialist paged using number . No call returned. Temp at start of shift was 102.1 - HR low 100's, RR 40, BP 145/80, O2 sats on 1.5L in the low 90's. RN bumped O2 up to 3L at start of shift - sats bumped up to mid 90's. Pt given 650 mg of tylenol at that time. Upon recheck of temp an hour or so later - temp 100.4. HR down to upper 90's. RR still elevated in the 30's- pt reported feeling much better. Will continue to monitor pt status.
[2019-10-21 00:30] LABS: CALCIUM 7.8 mg/dL (8.5-10.1); CREATININE 1.1 mg/dL (0.7-1.3); GFR 70.3; POTASSIUM 3.7 mmol/L (3.5-5.1)
[2019-10-21 00:35] LABS: ALBUMIN 2.2 g/dL (3.4-5.0); ALBUMIN/GLOBULIN RATIO 0.5 (1.0-1.7); TOTAL BILIRUBIN 2.2 mg/dL (0.2-1.0); TOTAL PROTEIN 6.8 g/dL (6.4-8.2)
[2019-10-21] MEDS: IV NORMAL SALINE 1000ML BAG 1,000 ML IV SCH ×4 (02:40→22:58)
[2019-10-21 02:58] VITALS: BP 119/87
[2019-10-21 07:57] VITALS: BP 140/76
[2019-10-21] MEDS: INSULIN LISPRO 300 UNITS/3 ML VIAL. SQ SCH ×3 (08:00→17:13)
[2019-10-21] MEDS: AZITHROMYCIN 250 MG TABLET. PO SCH (08:28)
[2019-10-21] MEDS: ACETAMINOPHEN 325 MG TABLET. PO PRN ×3 (08:28→18:05)
--- NOTE | 2019-10-21 09:03 | EKG ---
[facility] [address] [place] [address] Test Date: 2019-10-20 Test Time: 08:18:11 Pat Name: ZOEY STACY Department: Room: 673 1 Gender: M Probe Operator: ROCHELLE : 1965 Requested By: DAVID DE LEON Order Number: [id number] Reading MD: Osmar Medeiros MD Measurements Intervals [place] Rate: 111 P: -16 [place]: 104 QRS: 48 QRSD: 98 T: 14 QT: 330 QTc: 452 Interpretive Statements SINUS TACHYCARDIA Electronically Signed On 10-24-2019 11:50:27 CDT by Osmar Medeiros MD
--- NOTE | 2019-10-21 09:39 | PDOC ---
Infectious Disease Note Subjective: Subjective Pt continues to have some cough Feels better Remains febrile O2 requirement increased to 3 L O2 by nasal cannula Vital Signs: Vital Signs Vital Signs Date Time Temp Pulse Resp B/P (MAP) Pulse Ox O2 Delivery O2 Flow Rate FiO2 10/21/19 08:00 Nasal Cannula 3.0 10/21/19 07:57 100.5 108 30 140/76 (97) 98 100.5 Physical Exam: PHYSICAL EXAM GENERAL: The patient is alert, appears comfortable. HEENT: Pupils equally round. Oropharynx: [place] and moist. No lesions seen. NECK: Supple. LUNGS: Coarse right lower lobe. No accessory muscle use. HEART: S1 and S2, regular. ABDOMEN: Obese, soft, nontender. No rebound. Bowel sounds present. EXTREMITIES: No gross edema or cyanosis. SKIN: Warm to touch. No signs of rash. NEUROLOGIC: Alert and answering questions appropriately. Medications: Inpatient Meds: Current Medications Medications (Trade) Dose Ordered Sig/Maureen Start Time Stop Time Status Last Admin Dose Admin Acetaminophen (Tylenol) 650 mg PRN Q4HRS PRN 10/20/19 11:00 10/21/19 08:28 650 MG Al Hydroxide/Mg Hydroxide (Mylanta Plus Xs) 30 ml PRN DAILY PRN 10/20/19 11:00 Albuterol Sulfate (Ventolin Neb Soln) 2.5 mg PRN Q4HRS PRN 10/20/19 11:00 Azithromycin (Zithromax) 500 mg DAILY 10/21/19 09:00 10/23/19 09:01 10/21/19 08:28 500 MG Ceftriaxone Sodium (Rocephin) 1 gm Q24H 10/21/19 10:00 Clonidine HCl (Catapres) 0.1 mg PRN Q6HRS PRN 10/20/19 11:00 Dextrose (Dextrose 50%-Water Syringe) 12.5 gm PRN Q15MIN PRN 10/20/19 10:45 Docusate Sodium (Colace) 100 mg PRN BID PRN 10/20/19 11:00 Enoxaparin Sodium (Lovenox 40mg Syringe) 40 mg Q24H 10/20/19 11:00 10/20/19 12:58 40 MG Guaifenesin (Robitussin) 200 mg PRN Q4HRS PRN 10/20/19 11:00 Ibuprofen (Motrin) 800 mg 1X ONCE 10/20/19 11:00 10/20/19 11:01 DC 10/20/19 10:56 800 MG Insulin Human Lispro (HumaLOG) 0-5 UNITS TIDWMEALS 10/20/19 12:00 10/20/19 17:22 4 UNITS Magnesium Sulfate 50 ml @ 25 mls/hr 1X ONCE 10/20/19 09:45 10/20/19 11:44 DC 10/20/19 10:21 25 MLS/HR Ondansetron HCl (Zofran) 4 mg PRN Q4HRS PRN 10/20/19 11:00 10/20/19 13:03 4 MG Potassium Chloride (Klor-Con) 20 meq 1X ONCE 10/20/19 10:45 10/20/19 10:48 DC 10/20/19 13:00 20 MEQ Sodium Monofluorophosphate (Fleet Adult) 133 ml PRN DAILY PRN 10/20/19 11:00 Sodium Chloride 1,000 ml @ 100 mls/hr Q10H 10/20/19 10:56 10/21/19 02:40 100 MLS/HR Sodium Chloride (Normal Saline Flush) 3 ml QSHIFT PRN 10/20/19 11:00 Labs: Lab Laboratory Tests Test 10/20/19 10:52 10/20/19 15:00 10/20/19 16:23 10/20/19 23:45 Lactic Acid Level 3.0 mmol/L (0.4-2.0) 2.2 mmol/L (0.4-2.0) 1.8 mmol/L (0.4-2.0) Glucose (Fingerstick) 265 mg/dL (70-99) Sodium Level 131 mmol/L (136-145) Potassium Level 3.7 mmol/L (3.5-5.1) Chloride Level 101 mmol/L (98-107) Carbon Dioxide Level 21 mmol/L (21-32) Anion Gap 9 (6-14) Blood Urea Nitrogen 22 mg/dL (8-26) Creatinine 1.1 mg/dL (0.7-1.3) Estimated GFR (Cockcroft-Gault) 70.3 BUN/Creatinine Ratio 20 (6-20) Glucose Level 193 mg/dL (70-99) Calcium Level 7.8 mg/dL (8.5-10.1) Total Bilirubin 2.2 mg/dL (0.2-1.0) Aspartate Amino Transf (AST/SGOT) 68 U/L (15-37) Alanine Aminotransferase (ALT/SGPT) 28 U/L (16-63) Alkaline Phosphatase 146 U/L (46-116) Total Protein 6.8 g/dL (6.4-8.2) Albumin 2.2 g/dL (3.4-5.0) Albumin/Globulin Ratio 0.5 (1.0-1.7) Test 10/21/19 02:50 10/21/19 08:05 Glucose (Fingerstick) 168 mg/dL (70-99) 138 mg/dL (70-99) Objective: Assessment: 1. Pneumonia. 2. Lactic acidosis.Leucocytosis 3. Bandemia. 4. Abnormal LFTs, Hyperbilirubinemia. 5. Thrombocytopenia. 6. Electrolyte imbalances. 7. Hyperglycemia. 8. Tobacco dependency. 9. Obesity. Plan: Plan of Care Change Rocephin to Zosyn Continue azithromycin Repeat labs in am Follow-up BC Maintain aspiration precautions COVID-19 pending Droplet precautions till COVID-19 r/o D/w nursing LAZ BRIONES MD Oct 21, 2019 09:39
[2019-10-21] MEDS ORDERED: cefTRIAXone IV Push 1 GM VIAL. IVP SCH (10:00)
[2019-10-21] MEDS: ENOXAPARIN 40 MG/0.4 ML SYRINGE. SQ SCH (10:13)
[2019-10-21 11:21] VITALS: BP 144/78
--- NOTE | 2019-10-21 12:00 | NUR ---
Patient is febrile, triggers sepsis screen, on IV fluids, ceftriaxone and rocephin started per order. ID service updated, ceftrixone shifted to pip tazo, tylenol given per order. We'll continue to monitor.
[2019-10-21] MEDS: PIPERACILLIN/TAZOBACTAM 3.375 GM in IV NORMAL SALINE 50ML 50 ML IV SCH ×3 (12:19→23:33)
--- NOTE | 2019-10-21 12:44 | PDOC ---
PULMONARY PROGRESS NOTES Subjective no soa Vitals Vital Signs Date Time Temp Pulse Resp B/P (MAP) Pulse Ox O2 Delivery O2 Flow Rate FiO2 10/21/19 11:21 100.9 103 28 144/78 (100) 96 Nasal Cannula 3.0 100.9 Comments visual exam done due to COVID 19 suspicion no soa, no rash no edema General: Alert, No acute distress Labs Laboratory Tests Test 10/20/19 08:22 10/20/19 10:52 10/20/19 15:00 10/20/19 16:23 White Blood Count 11.1 x10^3/uL (4.0-11.0) Red Blood Count 4.61 x10^6/uL (4.30-5.70) Hemoglobin 16.5 g/dL (13.0-17.5) Hematocrit 46.6 % (39.0-53.0) Mean Corpuscular Volume 101 fL (79-100) Mean Corpuscular Hemoglobin 36 pg (25-35) Mean Corpuscular Hemoglobin Concent 35 g/dL (31-37) Red Cell Distribution Width 12.7 % (11.5-14.5) Platelet Count 100 x10^3/uL (140-400) Neutrophils (%) (Auto) 91 % (31-73) Lymphocytes (%) (Auto) 6 % (24-48) Monocytes (%) (Auto) 3 % (0-9) Eosinophils (%) (Auto) 0 % (0-3) Basophils (%) (Auto) 0 % (0-3) Neutrophils # (Auto) 10.0 x10^3/uL (1.8-7.7) Lymphocytes # (Auto) 0.6 x10^3/uL (1.0-4.8) Monocytes # (Auto) 0.4 x10^3/uL (0.0-1.1) Eosinophils # (Auto) 0.0 x10^3/uL (0.0-0.7) Basophils # (Auto) 0.0 x10^3/uL (0.0-0.2) Segmented Neutrophils % 33 % (35-66) Band Neutrophils % 52 % (0-9) Lymphocytes % 11 % (24-48) Monocytes % 3 % (0-10) Eosinophils % 1 % (0-5) Platelet Estimate Adequate (ADEQUATE) Prothrombin Time 17.4 SEC (11.7-14.0) Prothromb Time International Ratio 1.5 (0.8-1.1) Activated Partial Thromboplast Time 46 SEC (24-38) Fibrinogen 889 mg/dL (200-440) D-Dimer (Lexie) 3.62 ug/mlFEU (0.00-0.50) Sodium Level 132 mmol/L (136-145) Potassium Level 3.3 mmol/L (3.5-5.1) Chloride Level 97 mmol/L (98-107) Carbon Dioxide Level 20 mmol/L (21-32) Anion Gap 15 (6-14) Blood Urea Nitrogen 17 mg/dL (8-26) Creatinine 1.2 mg/dL (0.7-1.3) Estimated GFR (Cockcroft-Gault) 63.6 BUN/Creatinine Ratio 14 (6-20) Glucose Level 263 mg/dL (70-99) Calcium Level 7.9 mg/dL (8.5-10.1) Magnesium Level 1.5 mg/dL (1.8-2.4) Total Bilirubin 2.6 mg/dL (0.2-1.0) Aspartate Amino Transf (AST/SGOT) 55 U/L (15-37) Alanine Aminotransferase (ALT/SGPT) 24 U/L (16-63) Alkaline Phosphatase 125 U/L (46-116) Troponin I Quantitative < 0.017 ng/mL (0.000-0.055) JC-Iqu-T-Type Natriuretic Peptide 208 pg/mL (0-124) Total Protein 7.4 g/dL (6.4-8.2) Albumin 2.5 g/dL (3.4-5.0) Albumin/Globulin Ratio 0.5 (1.0-1.7) Lipase 345 U/L (73-393) Hepatitis A IgM Antibody Nonreactive (Nonreactive) Hepatitis B Surface Antigen Nonreactive (Nonreactive) Hepatitis B Core IgM Antibody Nonreactive (Nonreactive) Hepatitis C IgG Antibody Nonreactive (Nonreactive) Lactic Acid Level 3.0 mmol/L (0.4-2.0) 2.2 mmol/L (0.4-2.0) Glucose (Fingerstick) 265 mg/dL (70-99) Test 10/20/19 23:45 10/21/19 02:50 10/21/19 08:05 10/21/19 11:43 Sodium Level 131 mmol/L (136-145) Potassium Level 3.7 mmol/L (3.5-5.1) Chloride Level 101 mmol/L (98-107) Carbon Dioxide Level 21 mmol/L (21-32) Anion Gap 9 (6-14) Blood Urea Nitrogen 22 mg/dL (8-26) Creatinine 1.1 mg/dL (0.7-1.3) Estimated GFR (Cockcroft-Gault) 70.3 BUN/Creatinine Ratio 20 (6-20) Glucose Level 193 mg/dL (70-99) Lactic Acid Level 1.8 mmol/L (0.4-2.0) Calcium Level 7.8 mg/dL (8.5-10.1) Total Bilirubin 2.2 mg/dL (0.2-1.0) Aspartate Amino Transf (AST/SGOT) 68 U/L (15-37) Alanine Aminotransferase (ALT/SGPT) 28 U/L (16-63) Alkaline Phosphatase 146 U/L (46-116) Total Protein 6.8 g/dL (6.4-8.2) Albumin 2.2 g/dL (3.4-5.0) Albumin/Globulin Ratio 0.5 (1.0-1.7) Glucose (Fingerstick) 168 mg/dL (70-99) 138 mg/dL (70-99) 207 mg/dL (70-99) Laboratory Tests Test 10/20/19 15:00 10/20/19 16:23 10/20/19 23:45 10/21/19 02:50 Lactic Acid Level 2.2 mmol/L (0.4-2.0) 1.8 mmol/L (0.4-2.0) Glucose (Fingerstick) 265 mg/dL (70-99) 168 mg/dL (70-99) Sodium Level 131 mmol/L (136-145) Potassium Level 3.7 mmol/L (3.5-5.1) Chloride Level 101 mmol/L (98-107) Carbon Dioxide Level 21 mmol/L (21-32) Anion Gap 9 (6-14) Blood Urea Nitrogen 22 mg/dL (8-26) Creatinine 1.1 mg/dL (0.7-1.3) Estimated GFR (Cockcroft-Gault) 70.3 BUN/Creatinine Ratio 20 (6-20) Glucose Level 193 mg/dL (70-99) Calcium Level 7.8 mg/dL (8.5-10.1) Total Bilirubin 2.2 mg/dL (0.2-1.0) Aspartate Amino Transf (AST/SGOT) 68 U/L (15-37) Alanine Aminotransferase (ALT/SGPT) 28 U/L (16-63) Alkaline Phosphatase 146 U/L (46-116) Total Protein 6.8 g/dL (6.4-8.2) Albumin 2.2 g/dL (3.4-5.0) Albumin/Globulin Ratio 0.5 (1.0-1.7) Test 10/21/19 08:05 10/21/19 11:43 Glucose (Fingerstick) 138 mg/dL (70-99) 207 mg/dL (70-99) Impression . 1. Acute hypoxic respiratory failure secondary to suspected COVID-19 pneumonia. 2. Underlying obesity. 3. Long history of tobacco use, suspect underlying chronic obstructive pulmonary disease. 4. Abnormal LFTs, could be related to COVID infection. 5. Mild acute kidney injury, likely due to dehydration. Could be related to COVID-19. 6. Hypomagnesemia. 7. Moderate protein-calorie malnutrition. 8. Thrombocytopenia. Plan . 1. Continue with present oxygen to keep saturation 92 and above. 2. Broad spectrum antibiotic per Infectious Disease. 3. Lovenox for DVT prophylaxis. 4. Monitor LFTs. 5. Monitor platelet count. 6. Monitor fever 7. COVID-19 has been ordered and is pending. 8. We will follow the response to treatment. 9. Discussed with RN. This patient was seen during the COVID-19 pandemic. COVID-19 diagnosis was suspected on initial presentation. BRANDEN PARTIDA MD Oct 21, 2019 12:44
[2019-10-21 15:43] VITALS: BP 129/80
--- NOTE | 2019-10-21 16:48 | NUR ---
SW following for discharge planning. Reviewed pt's chart and spoke with RN. Spoke with pt who stated he lives at home with his and children. Pt stated he works and plans to return when able. Pt on 2l 02. Pt stated he is on 02 at home. Pt has a fever of 101. Pt on IV abx. COVID testing pending. SW to continue following.
--- NOTE | 2019-10-21 16:56 | PDOC ---
PROGRESS NOTES Chief Complaint Chief Complaint Patchy airspace disease at the right lung base may represent pulmonary infiltrate /PNEUMONIA diabetes Hypokalemia Morbid obesity transaminitis Tobacco abuse disorder Acute hypoxic resp failure Mild acute kidney injury, likely due to dehydration. Could be related to COVID- 19. Hypomagnesemia. Moderate protein-calorie malnutrition. Thrombocytopenia. PLAN ADMIT COVID-19 SCREEN Consult pulm iv zithromax, rocephin blood cult o2 support dvt propphylaxis accuchecks ID CONSULT acute hepatitis dx panel History of Present Illness History of Present Illness 10/21/2019 Patient with no acute events reported overnight, no fever or chills, seems to be stable, no new complaints. Vitals Vitals Vital Signs Date Time Temp Pulse Resp B/P (MAP) Pulse Ox O2 Delivery O2 Flow Rate FiO2 10/21/19 15:43 101.8 103 30 129/80 (96) 94 Nasal Cannula 2.0 101.8 Physical Exam Physical Exam GENERAL: The patient is alert, appears comfortable. HEENT: Pupils equally round. Oropharynx: [place] and moist. No lesions seen. NECK: Supple. LUNGS: Coarse right lower lobe. No accessory muscle use. HEART: S1 and S2, regular. ABDOMEN: Obese, soft, nontender. No rebound. Bowel sounds present. EXTREMITIES: No gross edema or cyanosis. SKIN: Warm to touch. No signs of rash. NEUROLOGIC: Alert and answering questions appropriately. General: Alert, Oriented X3, Cooperative, No acute distress Abdomen: Soft Extremities: No cyanosis, No edema Labs LABS Laboratory Tests Test 10/20/19 23:45 10/21/19 02:50 10/21/19 08:05 10/21/19 11:43 Sodium Level 131 mmol/L (136-145) Potassium Level 3.7 mmol/L (3.5-5.1) Chloride Level 101 mmol/L (98-107) Carbon Dioxide Level 21 mmol/L (21-32) Anion Gap 9 (6-14) Blood Urea Nitrogen 22 mg/dL (8-26) Creatinine 1.1 mg/dL (0.7-1.3) Estimated GFR (Cockcroft-Gault) 70.3 BUN/Creatinine Ratio 20 (6-20) Glucose Level 193 mg/dL (70-99) Lactic Acid Level 1.8 mmol/L (0.4-2.0) Calcium Level 7.8 mg/dL (8.5-10.1) Total Bilirubin 2.2 mg/dL (0.2-1.0) Aspartate Amino Transf (AST/SGOT) 68 U/L (15-37) Alanine Aminotransferase (ALT/SGPT) 28 U/L (16-63) Alkaline Phosphatase 146 U/L (46-116) Total Protein 6.8 g/dL (6.4-8.2) Albumin 2.2 g/dL (3.4-5.0) Albumin/Globulin Ratio 0.5 (1.0-1.7) Glucose (Fingerstick) 168 mg/dL (70-99) 138 mg/dL (70-99) 207 mg/dL (70-99) Assessment and Plan Assessmemt and Plan Problems Medical Problems: (1) Pneumonia Status: Acute (2) Suspected 2019-nCoV infection Status: Acute Comment Review of Relevant I have reviewed the following items laura (where applicable) has been applied. Labs Laboratory Tests Test 10/20/19 08:22 10/20/19 08:30 10/20/19 10:52 10/20/19 15:00 White Blood Count 11.1 x10^3/uL (4.0-11.0) Red Blood Count 4.61 x10^6/uL (4.30-5.70) Hemoglobin 16.5 g/dL (13.0-17.5) Hematocrit 46.6 % (39.0-53.0) Mean Corpuscular Volume 101 fL (79-100) Mean Corpuscular Hemoglobin 36 pg (25-35) Mean Corpuscular Hemoglobin Concent 35 g/dL (31-37) Red Cell Distribution Width 12.7 % (11.5-14.5) Platelet Count 100 x10^3/uL (140-400) Neutrophils (%) (Auto) 91 % (31-73) Lymphocytes (%) (Auto) 6 % (24-48) Monocytes (%) (Auto) 3 % (0-9) Eosinophils (%) (Auto) 0 % (0-3) Basophils (%) (Auto) 0 % (0-3) Neutrophils # (Auto) 10.0 x10^3/uL (1.8-7.7) Lymphocytes # (Auto) 0.6 x10^3/uL (1.0-4.8) Monocytes # (Auto) 0.4 x10^3/uL (0.0-1.1) Eosinophils # (Auto) 0.0 x10^3/uL (0.0-0.7) Basophils # (Auto) 0.0 x10^3/uL (0.0-0.2) Segmented Neutrophils % 33 % (35-66) Band Neutrophils % 52 % (0-9) Lymphocytes % 11 % (24-48) Monocytes % 3 % (0-10) Eosinophils % 1 % (0-5) Platelet Estimate Adequate (ADEQUATE) Prothrombin Time 17.4 SEC (11.7-14.0) Prothromb Time International Ratio 1.5 (0.8-1.1) Activated Partial Thromboplast Time 46 SEC (24-38) Fibrinogen 889 mg/dL (200-440) D-Dimer (Lexie) 3.62 ug/mlFEU (0.00-0.50) Sodium Level 132 mmol/L (136-145) Potassium Level 3.3 mmol/L (3.5-5.1) Chloride Level 97 mmol/L (98-107) Carbon Dioxide Level 20 mmol/L (21-32) Anion Gap 15 (6-14) Blood Urea Nitrogen 17 mg/dL (8-26) Creatinine 1.2 mg/dL (0.7-1.3) Estimated GFR (Cockcroft-Gault) 63.6 BUN/Creatinine Ratio 14 (6-20) Glucose Level 263 mg/dL (70-99) Calcium Level 7.9 mg/dL (8.5-10.1) Magnesium Level 1.5 mg/dL (1.8-2.4) Total Bilirubin 2.6 mg/dL (0.2-1.0) Aspartate Amino Transf (AST/SGOT) 55 U/L (15-37) Alanine Aminotransferase (ALT/SGPT) 24 U/L (16-63) Alkaline Phosphatase 125 U/L (46-116) Troponin I Quantitative < 0.017 ng/mL (0.000-0.055) [id number]-Type Natriuretic Peptide 208 pg/mL (0-124) Total Protein 7.4 g/dL (6.4-8.2) Albumin 2.5 g/dL (3.4-5.0) Albumin/Globulin Ratio 0.5 (1.0-1.7) Lipase 345 U/L (73-393) Hepatitis A IgM Antibody Nonreactive (Nonreactive) Hepatitis B Surface Antigen Nonreactive (Nonreactive) Hepatitis B Core IgM Antibody Nonreactive (Nonreactive) Hepatitis C IgG Antibody Nonreactive (Nonreactive) Coronavirus (COVID-19)(PCR) Not detected (NOT DETECT.) Lactic Acid Level 3.0 mmol/L (0.4-2.0) 2.2 mmol/L (0.4-2.0) Test 10/20/19 16:23 10/20/19 23:45 10/21/19 02:50 10/21/19 08:05 Glucose (Fingerstick) 265 mg/dL (70-99) 168 mg/dL (70-99) 138 mg/dL (70-99) Sodium Level 131 mmol/L (136-145) Potassium Level 3.7 mmol/L (3.5-5.1) Chloride Level 101 mmol/L (98-107) Carbon Dioxide Level 21 mmol/L (21-32) Anion Gap 9 (6-14) Blood Urea Nitrogen 22 mg/dL (8-26) Creatinine 1.1 mg/dL (0.7-1.3) Estimated GFR (Cockcroft-Gault) 70.3 BUN/Creatinine Ratio 20 (6-20) Glucose Level 193 mg/dL (70-99) Lactic Acid Level 1.8 mmol/L (0.4-2.0) Calcium Level 7.8 mg/dL (8.5-10.1) Total Bilirubin 2.2 mg/dL (0.2-1.0) Aspartate Amino Transf (AST/SGOT) 68 U/L (15-37) Alanine Aminotransferase (ALT/SGPT) 28 U/L (16-63) Alkaline Phosphatase 146 U/L (46-116) Total Protein 6.8 g/dL (6.4-8.2) Albumin 2.2 g/dL (3.4-5.0) Albumin/Globulin Ratio 0.5 (1.0-1.7) Test 10/21/19 11:43 Glucose (Fingerstick) 207 mg/dL (70-99) Laboratory Tests Test 10/20/19 23:45 10/21/19 02:50 10/21/19 08:05 6/8/20 11:43 Sodium Level 131 mmol/L (136-145) Potassium Level 3.7 mmol/L (3.5-5.1) Chloride Level 101 mmol/L (98-107) Carbon Dioxide Level 21 mmol/L (21-32) Anion Gap 9 (6-14) Blood Urea Nitrogen 22 mg/dL (8-26) Creatinine 1.1 mg/dL (0.7-1.3) Estimated GFR (Cockcroft-Gault) 70.3 BUN/Creatinine Ratio 20 (6-20) Glucose Level 193 mg/dL (70-99) Lactic Acid Level 1.8 mmol/L (0.4-2.0) Calcium Level 7.8 mg/dL (8.5-10.1) Total Bilirubin 2.2 mg/dL (0.2-1.0) Aspartate Amino Transf (AST/SGOT) 68 U/L (15-37) Alanine Aminotransferase (ALT/SGPT) 28 U/L (16-63) Alkaline Phosphatase 146 U/L (46-116) Total Protein 6.8 g/dL (6.4-8.2) Albumin 2.2 g/dL (3.4-5.0) Albumin/Globulin Ratio 0.5 (1.0-1.7) Glucose (Fingerstick) 168 mg/dL (70-99) 138 mg/dL (70-99) 207 mg/dL (70-99) Microbiology 10/20/19 Blood Culture - Preliminary, Resulted NO GROWTH AFTER 1 DAY Medications Current Medications Ceftriaxone Sodium (Rocephin) 1 gm 1X ONCE IVP Last administered on 10/20/19at 10:23; Start 10/20/19 at 09:45; Stop 10/20/19 at 09:58; Status DC Azithromycin 250 ml @ 250 mls/hr 1X ONCE IV Last administered on 10/20/19at 09:45; Start 10/20/19 at 09:45; Stop 10/20/19 at 10:44; Status DC Sodium Chloride 1,000 ml @ 1,000 mls/hr 1X ONCE IV Last administered on 10/20/19at 10:20; Start 10/20/19 at 09:45; Stop 10/20/19 at 10:44; Status DC Magnesium Sulfate 50 ml @ 25 mls/hr 1X ONCE IV Last administered on 10/20/19 10:21; Start 10/20/19 at 09:45; Stop 10/20/19 at 11:44; Status DC Potassium Chloride (Klor-Con) 40 meq 1X ONCE PO Last administered on 10/20/19 12:56; Start 10/20/19 at 10:45; Stop 10/20/19 at 10:48; Status DC Potassium Chloride (Klor-Con) 20 meq 1X ONCE PO Last administered on 10/20/19at 13:00; Start 10/20/19 at 10:45; Stop 10/20/19 at 10:48; Status DC Insulin Human Lispro (HumaLOG) 0-5 UNITS TIDWMEALS SQ Last administered on 10/21/19 12:20; Start 10/20/19 at 12:00 Dextrose (Dextrose 50%-Water Syringe) 12.5 gm PRN Q15MIN PRN IV SEE COMMENTS; Start 10/20/19 at 10:45 Ibuprofen (Motrin) 800 mg 1X ONCE PO Last administered on 10/20/19 10:56; Start 10/20/19 at 11:00; Stop 10/20/19 at 11:01; Status DC Sodium Chloride (Normal Saline Flush) 3 ml QSHIFT PRN IV AFTER MEDS AND BLOOD DRAWS; Start 10/20/19 at 11:00 Sodium Chloride 1,000 ml @ 100 mls/hr Q10H IV Last administered on 10/21/19 10:14; Start 10/20/19 at 10:56 Ondansetron HCl (Zofran) 4 mg PRN Q4HRS PRN IV NAUSEA/VOMITING Last administered on 10/20/19 13:03; Start 10/20/19 at 11:00 Acetaminophen (Tylenol) 650 mg PRN Q4HRS PRN PO TEMP OVER 100.4F OR MILD PAIN Last administered on 10/21/19 13:48; Start 10/20/19 at 11:00 Al Hydroxide/Mg Hydroxide (Mylanta Plus Xs) 30 ml PRN DAILY PRN PO HEARTBURN / GAS; Start 10/20/19 at 11:00 Clonidine HCl (Catapres) 0.1 mg PRN Q6HRS PRN PO SBP>160 OR DBP>90; Start 6/7/20 at 11:00 Sodium Monofluorophosphate (Fleet Adult) 133 ml PRN DAILY PRN [place] CONSTIPATION; Start 10/20/19 at 11:00 Docusate Sodium (Colace) 100 mg PRN BID PRN PO HARD STOOLS; Start 10/20/19 at 11:00 Albuterol Sulfate (Ventolin Neb Soln) 2.5 mg PRN Q4HRS PRN NEB SHORTNESS OF BREATH; Start 10/20/19 at 11:00 Guaifenesin (Robitussin) 200 mg PRN Q4HRS PRN PO COUGH; Start 10/20/19 at 11:00 Enoxaparin Sodium (Lovenox 40mg Syringe) 40 mg Q24H SQ Last administered on 10/21/19at 10:13; Start 10/20/19 at 11:00 Ceftriaxone Sodium (Rocephin) 1 gm Q24H IVP Last administered on 10/21/19at 10:13; Start 10/21/19 at 10:00; Stop 10/21/19 at 11:52; Status DC Azithromycin (Zithromax) 500 mg DAILY PO Last administered on 10/21/19at 08:28; Start 10/21/19 at 09:00; Stop 10/23/19 at 09:01 Piperacillin Sod/ Tazobactam Sod 3.375 gm/Sodium Chloride 50 ml @ 100 mls/hr Q6HRS IV Last administered on 10/21/19at 12:19; Start 10/21/19 at 12:00 Lactobacillus Rhamnosus (Culturelle) 1 cap BID PO ; Start 10/21/19 at 21:00 Vitals/I & O Vital Sign - Last 24 Hours 10/20/19 10/20/19 10/20/19 10/21/19 19:20 19:20 22:50 02:58 Temp 102.1 99.4 100.4 102.1 99.4 100.4 Pulse 104 102 106 Resp 40 32 40 B/P (MAP) 145/80 (101) 128/74 (92) 119/87 (98) Pulse Ox 92 94 97 O2 Delivery Nasal Cannula Nasal Cannula Nasal Cannula Nasal Cannula O2 Flow Rate 1.5 1.5 3.0 3.0 10/21/19 10/21/19 10/21/19 10/21/19 07:57 08:00 11:21 15:43 Temp 100.5 100.9 101.8 100.5 100.9 101.8 Pulse 108 103 103 Resp 30 28 30 B/P (MAP) 140/76 (97) 144/78 (100) 129/80 (96) Pulse Ox 98 96 94 O2 Delivery Nasal Cannula Nasal Cannula Nasal Cannula Nasal Cannula O2 Flow Rate 3.0 3.0 3.0 2.0 Intake and Output 10/20/19 10/20/19 10/21/19 15:00 23:00 07:00 Intake Total 450 ml 1401 ml Balance 450 ml 1401 ml SAUL VIDAL MD Oct 21, 2019 16:56
[2019-10-21 19:00] VITALS: BP 114/61
[2019-10-21] MEDS: LACTOBACILLUS RHAMNOSUS GG 1 CAPSULE. PO SCH (20:32)
[2019-10-21 23:00] VITALS: BP 121/79
[2019-10-22 03:00] VITALS: BP 141/76
[2019-10-22] MEDS: PIPERACILLIN/TAZOBACTAM 3.375 GM in IV NORMAL SALINE 50ML 50 ML IV SCH ×4 (06:04→23:16)
[2019-10-22 07:00] VITALS: BP 141/91
[2019-10-22] MEDS: INSULIN LISPRO 300 UNITS/3 ML VIAL. SQ SCH ×3 (08:00→17:00)
[2019-10-22] MEDS: AZITHROMYCIN 250 MG TABLET. PO SCH (09:02)
[2019-10-22] MEDS: LACTOBACILLUS RHAMNOSUS GG 1 CAPSULE. PO SCH ×2 (09:02→21:55)
--- NOTE | 2019-10-22 09:13 | NUR ---
Neg covid result reported to Dr. Molina, order for re-test entered
--- NOTE | 2019-10-22 09:22 | PDOC ---
Infectious Disease Note Subjective: Subjective Pt continues to have some cough Complains of feeling tired Remains febrile T-max 101.8 *F O2 requirement down to 2 L O2 by nasal cannula Denies headache , sore throat ,nausea, vomiting, shortness of breath, diarrhea, abdominal pain, rash, symptoms Otherwise as above Vital Signs: Vital Signs Vital Signs Date Time Temp Pulse Resp B/P (MAP) Pulse Ox O2 Delivery O2 Flow Rate FiO2 10/22/19 07:00 99.3 91 18 141/91 (108) 94 Room Air 99.3 10/22/19 03:00 2.0 Physical Exam: PHYSICAL EXAM GENERAL: The patient is alert, appears comfortable. HEENT: Pupils equally round. Oropharynx: [employer] and moist. No lesions seen. NECK: Supple. LUNGS: Coarse right lower lobe. No accessory muscle use. HEART: S1 and S2, regular. ABDOMEN: Obese, soft, nontender. No rebound. Bowel sounds present. EXTREMITIES: No gross edema or cyanosis. SKIN: Warm to touch. No signs of rash. NEUROLOGIC: Alert and answering questions appropriately. Medications: Inpatient Meds: Current Medications Medications (Trade) Dose Ordered Sig/Maureen Start Time Stop Time Status Last Admin Dose Admin Acetaminophen (Tylenol) 650 mg PRN Q4HRS PRN 10/20/19 11:00 10/21/19 18:05 650 MG Al Hydroxide/Mg Hydroxide (Mylanta Plus Xs) 30 ml PRN DAILY PRN 10/20/19 11:00 Albuterol Sulfate (Ventolin Neb Soln) 2.5 mg PRN Q4HRS PRN 10/20/19 11:00 Azithromycin (Zithromax) 500 mg DAILY 10/21/19 09:00 10/23/19 09:01 10/22/19 09:02 500 MG Ceftriaxone Sodium (Rocephin) 1 gm Q24H 10/21/19 10:00 10/21/19 11:52 DC 10/21/19 10:13 1 GM Clonidine HCl (Catapres) 0.1 mg PRN Q6HRS PRN 10/20/19 11:00 Dextrose (Dextrose 50%-Water Syringe) 12.5 gm PRN Q15MIN PRN 10/20/19 10:45 Docusate Sodium (Colace) 100 mg PRN BID PRN 10/20/19 11:00 Enoxaparin Sodium (Lovenox 40mg Syringe) 40 mg Q24H 10/20/19 11:00 10/21/19 10:13 40 MG Guaifenesin (Robitussin) 200 mg PRN Q4HRS PRN 10/20/19 11:00 Ibuprofen (Motrin) 800 mg 1X ONCE 10/20/19 11:00 10/20/19 11:01 DC 10/20/19 10:56 800 MG Insulin Human Lispro (HumaLOG) 0-5 UNITS TIDWMEALS 10/20/19 12:00 10/21/19 17:13 2 UNITS Lactobacillus Rhamnosus (Culturelle) 1 cap BID 10/21/19 21:00 10/22/19 09:02 1 CAP Magnesium Sulfate 50 ml @ 25 mls/hr 1X ONCE 10/20/19 09:45 10/20/19 11:44 DC 10/20/19 10:21 25 MLS/HR Ondansetron HCl (Zofran) 4 mg PRN Q4HRS PRN 10/20/19 11:00 10/20/19 13:03 4 MG Piperacillin Sod/ Tazobactam Sod 3.375 gm/Sodium Chloride 50 ml @ 100 mls/hr Q6HRS 10/21/19 12:00 10/22/19 06:04 100 MLS/HR Potassium Chloride (Klor-Con) 20 meq 1X ONCE 10/20/19 10:45 10/20/19 10:48 DC 10/20/19 13:00 20 MEQ Sodium Monofluorophosphate (Fleet Adult) 133 ml PRN DAILY PRN 10/20/19 11:00 Sodium Chloride 1,000 ml @ 100 mls/hr Q10H 10/20/19 10:56 10/21/19 22:58 100 MLS/HR Sodium Chloride (Normal Saline Flush) 3 ml QSHIFT PRN 10/20/19 11:00 Labs: Lab Laboratory Tests Test 10/21/19 11:43 10/21/19 16:45 10/21/19 20:42 10/22/19 07:46 Glucose (Fingerstick) 207 mg/dL (70-99) 191 mg/dL (70-99) 143 mg/dL (70-99) 102 mg/dL (70-99) Objective: Assessment: Fever Pneumonia Leukocytosis and bandemia Lactic acidosis Abnormal LFTs, Hyperbilirubinemia. Thrombocytopenia. Electrolyte imbalances. Hyperglycemia. Tobacco dependency. Obesity. Plan: Plan of Care Continue Zosyn Continue azithromycin Obtain labs, urine Legionella and streptococcal antigen CT chest Repeat COVID pending Follow-up BC Maintain aspiration precautions COVID-19 pending Droplet precautions till COVID-19 r/o D/w nursing LAZ BRIONES MD Oct 22, 2019 09:22
[2019-10-22 10:57] LABS: BASO # 0.1 x10^3/uL (0.0-0.2); BASO % 1 % (0-3); EOS % 0 % (0-3); HEMATOCRIT 42.4 % (39.0-53.0); LYMPH # 1.1 x10^3/uL (1.0-4.8); LYMPH % 15 % (24-48); MEAN CORPUSCULAR HEMOGLOBIN 36 pg (25-35); MEAN CORPUSCULAR HGB CONC 35 g/dL (31-37); MEAN CORPUSCULAR VOLUME 102 fL (79-100); MONO # 0.7 x10^3/uL (0.0-1.1); MONO % 9 % (0-9); NEUT # 5.9 x10^3/uL (1.8-7.7); NEUT % 76 % (31-73); PLATELET COUNT 104 x10^3/uL (140-400); RED BLOOD COUNT 4.17 x10^6/uL (4.30-5.70); RED CELL DISTRIBUTION WIDTH 13.2 % (11.5-14.5); WHITE BLOOD COUNT 7.9 x10^3/uL (4.0-11.0)
[2019-10-22 11:00] VITALS: BP 155/83
[2019-10-22] MEDS: ENOXAPARIN 40 MG/0.4 ML SYRINGE. SQ SCH (11:13)
[2019-10-22] MEDS: IV NORMAL SALINE 1000ML BAG 1,000 ML IV SCH ×2 (11:15→23:13)
--- NOTE | 2019-10-22 11:59 | NUR ---
SW following for discharge planning. SW reviewed chart and spoke with RN. Pt remains on 02. Pt has 02 at home per his report. Pt remains on IV Zosyn/Azithromycin. Pt is being tested again for COVID. Pt continues to have a fever. SW to continue following.
[2019-10-22 12:03] LABS: ALBUMIN/GLOBULIN RATIO 0.5 (1.0-1.7); C-REACTIVE PROTEIN 231.3 mg/L (0-3.3); CALCIUM 7.7 mg/dL (8.5-10.1); CREATININE 0.9 mg/dL (0.7-1.3); GFR 88.6; POTASSIUM 3.1 mmol/L (3.5-5.1); TOTAL BILIRUBIN 2.3 mg/dL (0.2-1.0); TOTAL PROTEIN 6.4 g/dL (6.4-8.2)
--- NOTE | 2019-10-22 13:19 | PDOC ---
PULMONARY PROGRESS NOTES Subjective no soa Vitals Vital Signs Date Time Temp Pulse Resp B/P (MAP) Pulse Ox O2 Delivery O2 Flow Rate FiO2 10/22/19 11:00 101.8 93 20 155/83 (107) 95 Nasal Cannula 2.0 101.8 Comments visual exam done due to COVID 19 suspicion no soa, no rash no edema General: Alert, No acute distress Labs Laboratory Tests Test 10/20/19 15:00 10/20/19 16:23 10/20/19 23:45 10/21/19 02:50 Lactic Acid Level 2.2 mmol/L (0.4-2.0) 1.8 mmol/L (0.4-2.0) Glucose (Fingerstick) 265 mg/dL (70-99) 168 mg/dL (70-99) Sodium Level 131 mmol/L (136-145) Potassium Level 3.7 mmol/L (3.5-5.1) Chloride Level 101 mmol/L (98-107) Carbon Dioxide Level 21 mmol/L (21-32) Anion Gap 9 (6-14) Blood Urea Nitrogen 22 mg/dL (8-26) Creatinine 1.1 mg/dL (0.7-1.3) Estimated GFR (Cockcroft-Gault) 70.3 BUN/Creatinine Ratio 20 (-20) Glucose Level 193 mg/dL (70-99) Calcium Level 7.8 mg/dL (8.5-10.1) Total Bilirubin 2.2 mg/dL (0.2-1.0) Aspartate Amino Transf (AST/SGOT) 68 U/L (15-37) Alanine Aminotransferase (ALT/SGPT) 28 U/L (16-63) Alkaline Phosphatase 146 U/L (46-116) Total Protein 6.8 g/dL (6.4-8.2) Albumin 2.2 g/dL (3.4-5.0) Albumin/Globulin Ratio 0.5 (1.0-1.7) Test 10/21/19 08:05 10/21/19 11:43 10/21/19 16:45 10/21/19 20:42 Glucose (Fingerstick) 138 mg/dL (70-99) 207 mg/dL (70-99) 191 mg/dL (70-99) 143 mg/dL (70-99) Test 10/22/19 07:46 10/22/19 10:45 10/22/19 11:08 Glucose (Fingerstick) 102 mg/dL (70-99) 170 mg/dL (70-99) White Blood Count 7.9 x10^3/uL (4.0-11.0) Red Blood Count 4.17 x10^6/uL (4.30-5.70) Hemoglobin 15.0 g/dL (13.0-17.5) Hematocrit 42.4 % (39.0-53.0) Mean Corpuscular Volume 102 fL (79-100) Mean Corpuscular Hemoglobin 36 pg (25-35) Mean Corpuscular Hemoglobin Concent 35 g/dL (31-37) Red Cell Distribution Width 13.2 % (11.5-14.5) Platelet Count 104 x10^3/uL (140-400) Neutrophils (%) (Auto) 76 % (31-73) Lymphocytes (%) (Auto) 15 % (24-48) Monocytes (%) (Auto) 9 % (0-9) Eosinophils (%) (Auto) 0 % (0-3) Basophils (%) (Auto) 1 % (0-3) Neutrophils # (Auto) 5.9 x10^3/uL (1.8-7.7) Lymphocytes # (Auto) 1.1 x10^3/uL (1.0-4.8) Monocytes # (Auto) 0.7 x10^3/uL (0.0-1.1) Eosinophils # (Auto) 0.0 x10^3/uL (0.0-0.7) Basophils # (Auto) 0.1 x10^3/uL (0.0-0.2) Sodium Level 133 mmol/L (136-145) Potassium Level 3.1 mmol/L (3.5-5.1) Chloride Level 99 mmol/L (98-107) Carbon Dioxide Level 24 mmol/L (21-32) Anion Gap 10 (6-14) Blood Urea Nitrogen 9 mg/dL (8-26) Creatinine 0.9 mg/dL (0.7-1.3) Estimated GFR (Cockcroft-Gault) 88.6 BUN/Creatinine Ratio 10 (6-20) Glucose Level 167 mg/dL (70-99) Lactic Acid Level 2.1 mmol/L (0.4-2.0) Calcium Level 7.7 mg/dL (8.5-10.1) Ferritin 1944 ng/mL (26-388) Total Bilirubin 2.3 mg/dL (0.2-1.0) Aspartate Amino Transf (AST/SGOT) 92 U/L (15-37) Alanine Aminotransferase (ALT/SGPT) 34 U/L (16-63) Alkaline Phosphatase 194 U/L (46-116) Creatine Kinase 92 U/L (39-308) C-Reactive Protein, Quantitative 231.3 mg/L (0-3.3) Total Protein 6.4 g/dL (6.4-8.2) Albumin 2.0 g/dL (3.4-5.0) Albumin/Globulin Ratio 0.5 (1.0-1.7) Procalcitonin 3.65 ng/mL (0.00-0.10) Laboratory Tests Test 10/21/19 16:45 10/21/19 20:42 10/22/19 07:46 10/22/19 10:45 Glucose (Fingerstick) 191 mg/dL (70-99) 143 mg/dL (70-99) 102 mg/dL (70-99) White Blood Count 7.9 x10^3/uL (4.0-11.0) Red Blood Count 4.17 x10^6/uL (4.30-5.70) Hemoglobin 15.0 g/dL (13.0-17.5) Hematocrit 42.4 % (39.0-53.0) Mean Corpuscular Volume 102 fL (79-100) Mean Corpuscular Hemoglobin 36 pg (25-35) Mean Corpuscular Hemoglobin Concent 35 g/dL (31-37) Red Cell Distribution Width 13.2 % (11.5-14.5) Platelet Count 104 x10^3/uL (140-400) Neutrophils (%) (Auto) 76 % (31-73) Lymphocytes (%) (Auto) 15 % (24-48) Monocytes (%) (Auto) 9 % (0-9) Eosinophils (%) (Auto) 0 % (0-3) Basophils (%) (Auto) 1 % (0-3) Neutrophils # (Auto) 5.9 x10^3/uL (1.8-7.7) Lymphocytes # (Auto) 1.1 x10^3/uL (1.0-4.8) Monocytes # (Auto) 0.7 x10^3/uL (0.0-1.1) Eosinophils # (Auto) 0.0 x10^3/uL (0.0-0.7) Basophils # (Auto) 0.1 x10^3/uL (0.0-0.2) Sodium Level 133 mmol/L (136-145) Potassium Level 3.1 mmol/L (3.5-5.1) Chloride Level 99 mmol/L (98-107) Carbon Dioxide Level 24 mmol/L (21-32) Anion Gap 10 (6-14) Blood Urea Nitrogen 9 mg/dL (8-26) Creatinine 0.9 mg/dL (0.7-1.3) Estimated GFR (Cockcroft-Gault) 88.6 BUN/Creatinine Ratio 10 (6-20) Glucose Level 167 mg/dL (70-99) Lactic Acid Level 2.1 mmol/L (0.4-2.0) Calcium Level 7.7 mg/dL (8.5-10.1) Ferritin 1944 ng/mL (26-388) Total Bilirubin 2.3 mg/dL (0.2-1.0) Aspartate Amino Transf (AST/SGOT) 92 U/L (15-37) Alanine Aminotransferase (ALT/SGPT) 34 U/L (16-63) Alkaline Phosphatase 194 U/L (46-116) Creatine Kinase 92 U/L (39-308) C-Reactive Protein, Quantitative 231.3 mg/L (0-3.3) Total Protein 6.4 g/dL (6.4-8.2) Albumin 2.0 g/dL (3.4-5.0) Albumin/Globulin Ratio 0.5 (1.0-1.7) Procalcitonin 3.65 ng/mL (0.00-0.10) Test 10/22/19 11:08 Glucose (Fingerstick) 170 mg/dL (70-99) Impression . 1. Acute hypoxic respiratory failure secondary to suspected COVID-19 pneumonia. 2. Underlying obesity. 3. Long history of tobacco use, suspect underlying chronic obstructive pulmonary disease. 4. Abnormal LFTs, could be related to COVID infection. 5. Mild acute kidney injury, likely due to dehydration. Could be related to COVID-19. 6. Hypomagnesemia. 7. Moderate protein-calorie malnutrition. 8. Thrombocytopenia. Plan . 1. Continue with present oxygen to keep saturation 92 and above. 2. Broad spectrum antibiotic per Infectious Disease. 3. Lovenox for DVT prophylaxis. 4. Monitor LFTs. 5. Monitor platelet count. 6. Monitor fever 7. COVID-19 has been ordered and is pending. 8. We will follow the response to treatment. 9. Discussed with RN. This patient was seen during the COVID-19 pandemic. COVID-19 diagnosis was suspected on initial presentation. BRANDEN PARTIDA MD Oct 22, 2019 13:19
--- NOTE | 2019-10-22 13:36 | NUR ---
pg to Dr. Rossana PATEL K+ 3.1, lactic 2.1
--- NOTE | 2019-10-22 14:26 | PDOC ---
PROGRESS NOTES Chief Complaint Chief Complaint Patchy airspace disease at the right lung base may represent pulmonary infiltrate /PNEUMONIA diabetes Hypokalemia Morbid obesity transaminitis Tobacco abuse disorder Acute hypoxic resp failure Mild acute kidney injury, likely due to dehydration. Could be related to COVID- 19. Hypomagnesemia. Moderate protein-calorie malnutrition. Thrombocytopenia. PLAN ADMIT COVID-19 SCREEN Consult pulm iv zithromax, rocephin blood cult o2 support dvt propphylaxis accuchecks ID CONSULT acute hepatitis dx panel History of Present Illness History of Present Illness 10/22/2019 No acute events reported overnight, case discussed with nursing staff patient in no acute distress no complaints during my visit, COVID test is being repeated overall hoping to be discharged soon 10/21/2019 Patient with no acute events reported overnight, no fever or chills, seems to be stable, no new complaints. Vitals Vitals Vital Signs Date Time Temp Pulse Resp B/P (MAP) Pulse Ox O2 Delivery O2 Flow Rate FiO2 10/22/19 11:00 101.8 93 20 155/83 (107) 95 Nasal Cannula 2.0 101.8 Physical Exam Physical Exam GENERAL: The patient is alert, appears comfortable. HEENT: Pupils equally round. Oropharynx: Shorter and moist. No lesions seen. NECK: Supple. LUNGS: Coarse right lower lobe. No accessory muscle use. HEART: S1 and S2, regular. ABDOMEN: Obese, soft, nontender. No rebound. Bowel sounds present. EXTREMITIES: No gross edema or cyanosis. SKIN: Warm to touch. No signs of rash. NEUROLOGIC: Alert and answering questions appropriately. General: Alert, Oriented X3, Cooperative, No acute distress Abdomen: Soft Extremities: No cyanosis, No edema Labs LABS Laboratory Tests Test 10/21/19 16:45 10/21/19 20:42 10/22/19 07:46 10/22/19 10:45 Glucose (Fingerstick) 191 mg/dL (70-99) 143 mg/dL (70-99) 102 mg/dL (70-99) White Blood Count 7.9 x10^3/uL (4.0-11.0) Red Blood Count 4.17 x10^6/uL (4.30-5.70) Hemoglobin 15.0 g/dL (13.0-17.5) Hematocrit 42.4 % (39.0-53.0) Mean Corpuscular Volume 102 fL (79-100) Mean Corpuscular Hemoglobin 36 pg (25-35) Mean Corpuscular Hemoglobin Concent 35 g/dL (31-37) Red Cell Distribution Width 13.2 % (11.5-14.5) Platelet Count 104 x10^3/uL (140-400) Neutrophils (%) (Auto) 76 % (31-73) Lymphocytes (%) (Auto) 15 % (24-48) Monocytes (%) (Auto) 9 % (0-9) Eosinophils (%) (Auto) 0 % (0-3) Basophils (%) (Auto) 1 % (0-3) Neutrophils # (Auto) 5.9 x10^3/uL (1.8-7.7) Lymphocytes # (Auto) 1.1 x10^3/uL (1.0-4.8) Monocytes # (Auto) 0.7 x10^3/uL (0.0-1.1) Eosinophils # (Auto) 0.0 x10^3/uL (0.0-0.7) Basophils # (Auto) 0.1 x10^3/uL (0.0-0.2) Sodium Level 133 mmol/L (136-145) Potassium Level 3.1 mmol/L (3.5-5.1) Chloride Level 99 mmol/L (98-107) Carbon Dioxide Level 24 mmol/L (21-32) Anion Gap 10 (6-14) Blood Urea Nitrogen 9 mg/dL (8-26) Creatinine 0.9 mg/dL (0.7-1.3) Estimated GFR (Cockcroft-Gault) 88.6 BUN/Creatinine Ratio 10 (6-20) Glucose Level 167 mg/dL (70-99) Lactic Acid Level 2.1 mmol/L (0.4-2.0) Calcium Level 7.7 mg/dL (8.5-10.1) Ferritin 1944 ng/mL (26-388) Total Bilirubin 2.3 mg/dL (0.2-1.0) Aspartate Amino Transf (AST/SGOT) 92 U/L (15-37) Alanine Aminotransferase (ALT/SGPT) 34 U/L (16-63) Alkaline Phosphatase 194 U/L (46-116) Creatine Kinase 92 U/L (39-308) C-Reactive Protein, Quantitative 231.3 mg/L (0-3.3) Total Protein 6.4 g/dL (6.4-8.2) Albumin 2.0 g/dL (3.4-5.0) Albumin/Globulin Ratio 0.5 (1.0-1.7) Procalcitonin 3.65 ng/mL (0.00-0.10) Test 10/22/19 11:08 Glucose (Fingerstick) 170 mg/dL (70-99) Assessment and Plan Assessmemt and Plan Problems Medical Problems: (1) Pneumonia Status: Acute (2) Suspected 2019-nCoV infection Status: Acute Comment Review of Relevant I have reviewed the following items laura (where applicable) has been applied. Labs Laboratory Tests Test 10/20/19 15:00 10/20/19 16:23 10/20/19 23:45 10/21/19 02:50 Lactic Acid Level 2.2 mmol/L (0.4-2.0) 1.8 mmol/L (0.4-2.0) Glucose (Fingerstick) 265 mg/dL (70-99) 168 mg/dL (70-99) Sodium Level 131 mmol/L (136-145) Potassium Level 3.7 mmol/L (3.5-5.1) Chloride Level 101 mmol/L (98-107) Carbon Dioxide Level 21 mmol/L (21-32) Anion Gap 9 (6-14) Blood Urea Nitrogen 22 mg/dL (8-26) Creatinine 1.1 mg/dL (0.7-1.3) Estimated GFR (Cockcroft-Gault) 70.3 BUN/Creatinine Ratio 20 (6-20) Glucose Level 193 mg/dL (70-99) Calcium Level 7.8 mg/dL (8.5-10.1) Total Bilirubin 2.2 mg/dL (0.2-1.0) Aspartate Amino Transf (AST/SGOT) 68 U/L (15-37) Alanine Aminotransferase (ALT/SGPT) 28 U/L (16-63) Alkaline Phosphatase 146 U/L (46-116) Total Protein 6.8 g/dL (6.4-8.2) Albumin 2.2 g/dL (3.4-5.0) Albumin/Globulin Ratio 0.5 (1.0-1.7) Test 10/21/19 08:05 10/21/19 11:43 10/21/19 16:45 10/21/19 20:42 Glucose (Fingerstick) 138 mg/dL (70-99) 207 mg/dL (70-99) 191 mg/dL (70-99) 143 mg/dL (70-99) Test 10/22/19 07:46 10/22/19 10:45 10/22/19 11:08 Glucose (Fingerstick) 102 mg/dL (70-99) 170 mg/dL (70-99) White Blood Count 7.9 x10^3/uL (4.0-11.0) Red Blood Count 4.17 x10^6/uL (4.30-5.70) Hemoglobin 15.0 g/dL (13.0-17.5) Hematocrit 42.4 % (39.0-53.0) Mean Corpuscular Volume 102 fL (79-100) Mean Corpuscular Hemoglobin 36 pg (25-35) Mean Corpuscular Hemoglobin Concent 35 g/dL (31-37) Red Cell Distribution Width 13.2 % (11.5-14.5) Platelet Count 104 x10^3/uL (140-400) Neutrophils (%) (Auto) 76 % (31-73) Lymphocytes (%) (Auto) 15 % (24-48) Monocytes (%) (Auto) 9 % (0-9) Eosinophils (%) (Auto) 0 % (0-3) Basophils (%) (Auto) 1 % (0-3) Neutrophils # (Auto) 5.9 x10^3/uL (1.8-7.7) Lymphocytes # (Auto) 1.1 x10^3/uL (1.0-4.8) Monocytes # (Auto) 0.7 x10^3/uL (0.0-1.1) Eosinophils # (Auto) 0.0 x10^3/uL (0.0-0.7) Basophils # (Auto) 0.1 x10^3/uL (0.0-0.2) Sodium Level 133 mmol/L (136-145) Potassium Level 3.1 mmol/L (3.5-5.1) Chloride Level 99 mmol/L (98-107) Carbon Dioxide Level 24 mmol/L (21-32) Anion Gap 10 (6-14) Blood Urea Nitrogen 9 mg/dL (8-26) Creatinine 0.9 mg/dL (0.7-1.3) Estimated GFR (Cockcroft-Gault) 88.6 BUN/Creatinine Ratio 10 (6-20) Glucose Level 167 mg/dL (70-99) Lactic Acid Level 2.1 mmol/L (0.4-2.0) Calcium Level 7.7 mg/dL (8.5-10.1) Ferritin 1944 ng/mL (26-388) Total Bilirubin 2.3 mg/dL (0.2-1.0) Aspartate Amino Transf (AST/SGOT) 92 U/L (15-37) Alanine Aminotransferase (ALT/SGPT) 34 U/L (16-63) Alkaline Phosphatase 194 U/L (46-116) Creatine Kinase 92 U/L (39-308) C-Reactive Protein, Quantitative 231.3 mg/L (0-3.3) Total Protein 6.4 g/dL (6.4-8.2) Albumin 2.0 g/dL (3.4-5.0) Albumin/Globulin Ratio 0.5 (1.0-1.7) Procalcitonin 3.65 ng/mL (0.00-0.10) Laboratory Tests Test 10/21/19 16:45 10/21/19 20:42 10/22/19 07:46 10/22/19 10:45 Glucose (Fingerstick) 191 mg/dL (70-99) 143 mg/dL (70-99) 102 mg/dL (70-99) White Blood Count 7.9 x10^3/uL (4.0-11.0) Red Blood Count 4.17 x10^6/uL (4.30-5.70) Hemoglobin 15.0 g/dL (13.0-17.5) Hematocrit 42.4 % (39.0-53.0) Mean Corpuscular Volume 102 fL (79-100) Mean Corpuscular Hemoglobin 36 pg (25-35) Mean Corpuscular Hemoglobin Concent 35 g/dL (31-37) Red Cell Distribution Width 13.2 % (11.5-14.5) Platelet Count 104 x10^3/uL (140-400) Neutrophils (%) (Auto) 76 % (31-73) Lymphocytes (%) (Auto) 15 % (24-48) Monocytes (%) (Auto) 9 % (0-9) Eosinophils (%) (Auto) 0 % (0-3) Basophils (%) (Auto) 1 % (0-3) Neutrophils # (Auto) 5.9 x10^3/uL (1.8-7.7) Lymphocytes # (Auto) 1.1 x10^3/uL (1.0-4.8) Monocytes # (Auto) 0.7 x10^3/uL (0.0-1.1) Eosinophils # (Auto) 0.0 x10^3/uL (0.0-0.7) Basophils # (Auto) 0.1 x10^3/uL (0.0-0.2) Sodium Level 133 mmol/L (136-145) Potassium Level 3.1 mmol/L (3.5-5.1) Chloride Level 99 mmol/L (98-107) Carbon Dioxide Level 24 mmol/L (21-32) Anion Gap 10 (6-14) Blood Urea Nitrogen 9 mg/dL (8-26) Creatinine 0.9 mg/dL (0.7-1.3) Estimated GFR (Cockcroft-Gault) 88.6 BUN/Creatinine Ratio 10 (6-20) Glucose Level 167 mg/dL (70-99) Lactic Acid Level 2.1 mmol/L (0.4-2.0) Calcium Level 7.7 mg/dL (8.5-10.1) Ferritin 1944 ng/mL (26-388) Total Bilirubin 2.3 mg/dL (0.2-1.0) Aspartate Amino Transf (AST/SGOT) 92 U/L (15-37) Alanine Aminotransferase (ALT/SGPT) 34 U/L (16-63) Alkaline Phosphatase 194 U/L (46-116) Creatine Kinase 92 U/L (39-308) C-Reactive Protein, Quantitative 231.3 mg/L (0-3.3) Total Protein 6.4 g/dL (6.4-8.2) Albumin 2.0 g/dL (3.4-5.0) Albumin/Globulin Ratio 0.5 (1.0-1.7) Procalcitonin 3.65 ng/mL (0.00-0.10) Test 10/22/19 11:08 Glucose (Fingerstick) 170 mg/dL (70-99) Microbiology 10/20/19 Blood Culture - Preliminary, Resulted NO GROWTH AFTER 1 DAY Medications Current Medications Ceftriaxone Sodium (Rocephin) 1 gm 1X ONCE IVP Last administered on 10/20/19at 10:23; Start 10/20/19 at 09:45; Stop 10/20/19 at 09:58; Status DC Azithromycin 250 ml @ 250 mls/hr 1X ONCE IV Last administered on 10/20/19at 09:45; Start 10/20/19 at 09:45; Stop 10/20/19 at 10:44; Status DC Sodium Chloride 1,000 ml @ 1,000 mls/hr 1X ONCE IV Last administered on 10/20/19at 10:20; Start 10/20/19 at 09:45; Stop 10/20/19 at 10:44; Status DC Magnesium Sulfate 50 ml @ 25 mls/hr 1X ONCE IV Last administered on 10/20/19at 10:21; Start 10/20/19 at 09:45; Stop 10/20/19 at 11:44; Status DC Potassium Chloride (Klor-Con) 40 meq 1X ONCE PO Last administered on 10/20/19at 12:56; Start 10/20/19 at 10:45; Stop 10/20/19 at 10:48; Status DC Potassium Chloride (Klor-Con) 20 meq 1X ONCE PO Last administered on 10/20/19at 13:00; Start 10/20/19 at 10:45; Stop 10/20/19 at 10:48; Status DC Insulin Human Lispro (HumaLOG) 0-5 UNITS TIDWMEALS SQ Last administered on 10/22/19at 12:17; Start 10/20/19 at 12:00 Dextrose (Dextrose 50%-Water Syringe) 12.5 gm PRN Q15MIN PRN IV SEE COMMENTS; Start 10/20/19 at 10:45 Ibuprofen (Motrin) 800 mg 1X ONCE PO Last administered on 10/20/19at 10:56; Start 10/20/19 at 11:00; Stop 10/20/19 at 11:01; Status DC Sodium Chloride (Normal Saline Flush) 3 ml QSHIFT PRN IV AFTER MEDS AND BLOOD DRAWS; Start 10/20/19 at 11:00 Sodium Chloride 1,000 ml @ 100 mls/hr Q10H IV Last administered on 10/22/19at 11:15; Start 10/20/19 at 10:56 Ondansetron HCl (Zofran) 4 mg PRN Q4HRS PRN IV NAUSEA/VOMITING Last administered on 10/20/19at 13:03; Start 10/20/19 at 11:00 Acetaminophen (Tylenol) 650 mg PRN Q4HRS PRN PO TEMP OVER 100.4F OR MILD PAIN Last administered on 10/21/19at 18:05; Start 10/20/19 at 11:00 Al Hydroxide/Mg Hydroxide (Mylanta Plus Xs) 30 ml PRN DAILY PRN PO HEARTBURN / GAS; Start 10/20/19 at 11:00 Clonidine HCl (Catapres) 0.1 mg PRN Q6HRS PRN PO SBP>160 OR DBP>90; Start 10/20/19 at 11:00 Sodium Monofluorophosphate (Fleet Adult) 133 ml PRN DAILY PRN HI CONSTIPATION; Start 10/20/19 at 11:00 Docusate Sodium (Colace) 100 mg PRN BID PRN PO HARD STOOLS; Start 10/20/19 at 11:00 Albuterol Sulfate (Ventolin Neb Soln) 2.5 mg PRN Q4HRS PRN NEB SHORTNESS OF BREATH; Start 10/20/19 at 11:00 Guaifenesin (Robitussin) 200 mg PRN Q4HRS PRN PO COUGH; Start 10/20/19 at 11:00 Enoxaparin Sodium (Lovenox 40mg Syringe) 40 mg Q24H SQ Last administered on 10/22/19at 11:13; Start 10/20/19 at 11:00 Ceftriaxone Sodium (Rocephin) 1 gm Q24H IVP Last administered on 10/21/19at 10:13; Start 10/21/19 at 10:00; Stop 10/21/19 at 11:52; Status DC Azithromycin (Zithromax) 500 mg DAILY PO Last administered on 10/22/19at 09:02; Start 10/21/19 at 09:00; Stop 10/23/19 at 09:01 Piperacillin Sod/ Tazobactam Sod 3.375 gm/Sodium Chloride 50 ml @ 100 mls/hr Q6HRS IV Last administered on 10/22/19at 11:14; Start 10/21/19 at 12:00 Lactobacillus Rhamnosus (Culturelle) 1 cap BID PO Last administered on 10/22/19at 09:02; Start 10/21/19 at 21:00 Vitals/I & O Vital Sign - Last 24 Hours 10/21/19 10/21/19 10/21/19 10/21/19 15:43 19:00 20:04 23:00 Temp 101.8 100.8 98.8 101.8 100.8 98.8 Pulse 103 100 102 Resp 30 28 26 B/P (MAP) 129/80 (96) 114/61 (78) 121/79 (93) Pulse Ox 94 94 94 O2 Delivery Nasal Cannula Nasal Cannula Nasal Cannula Nasal Cannula O2 Flow Rate 2.0 2.0 2.0 2.0 10/22/19 10/22/19 10/22/19 10/22/19 03:00 07:00 08:00 11:00 Temp 99.6 99.3 101.8 99.6 99.3 101.8 Pulse 98 91 93 Resp 22 18 20 B/P (MAP) 141/76 (97) 141/91 (108) 155/83 (107) Pulse Ox 95 94 95 O2 Delivery Room Air Nasal Cannula Nasal Cannula O2 Flow Rate 2.0 2.0 2.0 Intake and Output 10/21/19 10/21/19 10/22/19 15:00 23:00 07:00 Intake Total 240 ml 200 ml Output Total 250 ml 200 ml Balance -10 ml 0 ml SAUL VIDAL MD Oct 22, 2019 14:26
[2019-10-22] MEDS ORDERED: POTASSIUM CHLORIDE 20 MEQ TABLET.ER. PO ONE ×3 (14:45→18:45)
[2019-10-22 15:00] VITALS: BP 145/73
[2019-10-22] MEDS: ACETAMINOPHEN 325 MG TABLET. PO PRN (15:02)
[2019-10-22 22:00] VITALS: BP 118/65
[2019-10-23 03:00] VITALS: BP 115/72
[2019-10-23 04:44] LABS: BILIRUBIN,URINE NEGATIVE (NEG); CLARITY,URINE CLEAR; COLOR,URINE YELLOW; NITRITE,URINE NEGATIVE (NEG); PROTEIN,URINE NEGATIVE (NEG-TRACE); UROBILINOGEN,URINE 0.2 mg/dL (0.2 mg/dL)
[2019-10-23 04:51] LABS: BACTERIA,URINE 0 /HPF (0-FEW); SQUAMOUS EPITHELIAL CELL,UR OCC /LPF
[2019-10-23 04:52] LABS: WBC,URINE OCC /HPF (0-4)
[2019-10-23] MEDS: PIPERACILLIN/TAZOBACTAM 3.375 GM in IV NORMAL SALINE 50ML 50 ML IV SCH (05:29)
[2019-10-23 07:00] VITALS: BP 133/84
[2019-10-23] MEDS: INSULIN LISPRO 300 UNITS/3 ML VIAL. SQ SCH ×3 (08:00→17:00)
[2019-10-23] MEDS: IV NORMAL SALINE 1000ML BAG 1,000 ML IV SCH ×2 (09:19→18:35)
[2019-10-23] MEDS: LACTOBACILLUS RHAMNOSUS GG 1 CAPSULE. PO SCH ×2 (09:19→20:19)
[2019-10-23] MEDS: AZITHROMYCIN 250 MG TABLET. PO SCH (09:19)
[2019-10-23] MEDS: ENOXAPARIN 40 MG/0.4 ML SYRINGE. SQ SCH (10:51)
[2019-10-23 11:00] VITALS: BP 129/90
--- NOTE | 2019-10-23 11:10 | PDOC ---
Infectious Disease Note Subjective: Subjective Pt continues to remain febrile T-max 101 1500 yesterday Patient feels better O2 requirement down to 2 L O2 by nasal cannula Denies headache , sore throat ,nausea, vomiting, shortness of breath, diarrhea, abdominal pain, rash, symptoms Otherwise as above Vital Signs: Vital Signs Vital Signs Date Time Temp Pulse Resp B/P (MAP) Pulse Ox O2 Delivery O2 Flow Rate FiO2 10/23/19 08:00 Room Air 10/23/19 07:49 92 2.0 10/23/19 07:00 96.1 74 20 133/84 (100) 96.1 Physical Exam: PHYSICAL EXAM GENERAL: The patient is alert, appears comfortable. HEENT: Pupils equally round. Oropharynx: [place] and moist. No lesions seen. NECK: Supple. LUNGS: Coarse right lower lobe. No accessory muscle use. HEART: S1 and S2, regular. ABDOMEN: Obese, soft, nontender. No rebound. Bowel sounds present. EXTREMITIES: No gross edema or cyanosis. SKIN: Warm to touch. No signs of rash. NEUROLOGIC: Alert and answering questions appropriately. Medications: Inpatient Meds: Current Medications Medications (Trade) Dose Ordered Sig/Maureen Start Time Stop Time Status Last Admin Dose Admin Acetaminophen (Tylenol) 650 mg PRN Q4HRS PRN 10/20/19 11:00 10/22/19 15:02 650 MG Al Hydroxide/Mg Hydroxide (Mylanta Plus Xs) 30 ml PRN DAILY PRN 10/20/19 11:00 Albuterol Sulfate (Ventolin Neb Soln) 2.5 mg PRN Q4HRS PRN 10/20/19 11:00 Azithromycin (Zithromax) 500 mg DAILY 10/21/19 09:00 10/23/19 09:01 DC 10/23/19 09:19 500 MG Ceftriaxone Sodium (Rocephin) 1 gm Q24H 10/21/19 10:00 10/21/19 11:52 DC 10/21/19 10:13 1 GM Clonidine HCl (Catapres) 0.1 mg PRN Q6HRS PRN 10/20/19 11:00 Dextrose (Dextrose 50%-Water Syringe) 12.5 gm PRN Q15MIN PRN 10/20/19 10:45 Docusate Sodium (Colace) 100 mg PRN BID PRN 10/20/19 11:00 Enoxaparin Sodium (Lovenox 40mg Syringe) 40 mg Q24H 10/20/19 11:00 10/23/19 10:51 40 MG Guaifenesin (Robitussin) 200 mg PRN Q4HRS PRN 10/20/19 11:00 Ibuprofen (Motrin) 800 mg 1X ONCE 10/20/19 11:00 10/20/19 11:01 DC 10/20/19 10:56 800 MG Insulin Human Lispro (HumaLOG) 0-5 UNITS TIDWMEALS 10/20/19 12:00 10/22/19 12:17 2 UNITS Lactobacillus Rhamnosus (Culturelle) 1 cap BID 10/21/19 21:00 10/23/19 09:19 1 CAP Magnesium Sulfate 50 ml @ 25 mls/hr 1X ONCE 10/20/19 09:45 10/20/19 11:44 DC 10/20/19 10:21 25 MLS/HR Ondansetron HCl (Zofran) 4 mg PRN Q4HRS PRN 10/20/19 11:00 10/20/19 13:03 4 MG Piperacillin Sod/ Tazobactam Sod 3.375 gm/Sodium Chloride 50 ml @ 100 mls/hr Q6HRS 10/21/19 12:00 10/23/19 05:29 100 MLS/HR Potassium Chloride (Klor-Con) 40 meq 1X ONCE 10/22/19 18:45 10/22/19 18:46 DC 10/22/19 18:55 40 MEQ Sodium Monofluorophosphate (Fleet Adult) 133 ml PRN DAILY PRN 10/20/19 11:00 Sodium Chloride 1,000 ml @ 100 mls/hr Q10H 10/20/19 10:56 10/23/19 09:19 100 MLS/HR Sodium Chloride (Normal Saline Flush) 3 ml QSHIFT PRN 10/20/19 11:00 Labs: Lab Laboratory Tests Test 10/22/19 11:08 10/22/19 14:25 10/22/19 17:00 10/23/19 04:00 Glucose (Fingerstick) 170 mg/dL (70-99) 139 mg/dL (70-99) Lactic Acid Level 2.0 mmol/L (0.4-2.0) Urine Collection Type Unknown Urine Color Yellow Urine Clarity Clear Urine pH 6.0 (<5.0-8.0) Urine Specific [place] 1.015 (1.000-1.030) Urine Protein Negative mg/dL (NEG-TRACE) Urine Glucose (UA) Negative mg/dL (NEG) Urine Ketones (Stick) Negative mg/dL (NEG) Urine Blood Moderate (NEG) Urine Nitrite Negative (NEG) Urine Bilirubin Negative (NEG) Urine Urobilinogen Dipstick 0.2 mg/dL (0.2 mg/dL) Urine Leukocyte Esterase Negative (NEG) Urine RBC 6-10 /HPF (0-2) Urine WBC Occ /HPF (0-4) Urine Squamous Epithelial Cells Occ /LPF Urine Bacteria 0 /HPF (0-FEW) Urine Mucus Slight /LPF Test 10/23/19 08:16 10/23/19 10:55 Glucose (Fingerstick) 123 mg/dL (70-99) 165 mg/dL (70-99) Objective: Assessment: Fever Pneumonia Leukocytosis and bandemia Lactic acidosis Abnormal LFTs, Hyperbilirubinemia. Thrombocytopenia. Electrolyte imbalances. Hyperglycemia. Tobacco dependency. Obesity. Plan: Plan of Care GERARDO Jordan Completed azithromycin Start empiric Levaquin and monitor for one more day Follow-up CT chest results Follow-up urine Legionella and streptococcal antigen Follow-up repeat COVID pending Follow-up BC Maintain aspiration precautions Droplet precautions till COVID-19 r/o D/w nursing LAZ BRIONES MD Oct 23, 2019 11:10
--- NOTE | 2019-10-23 11:34 | PDOC ---
PULMONARY PROGRESS NOTES Subjective no soa Vitals Vital Signs Date Time Temp Pulse Resp B/P (MAP) Pulse Ox O2 Delivery O2 Flow Rate FiO2 10/23/19 08:00 Room Air 10/23/19 07:49 92 2.0 10/23/19 07:00 96.1 74 20 133/84 (100) 96.1 Comments visual exam done due to COVID 19 suspicion no soa, no rash no edema General: Alert, No acute distress Labs Laboratory Tests Test 10/21/19 11:43 10/21/19 16:45 10/21/19 20:42 10/22/19 07:46 Glucose (Fingerstick) 207 mg/dL (70-99) 191 mg/dL (70-99) 143 mg/dL (70-99) 102 mg/dL (70-99) Test 10/22/19 10:45 10/22/19 11:08 10/22/19 14:25 10/22/19 17:00 White Blood Count 7.9 x10^3/uL (4.0-11.0) Red Blood Count 4.17 x10^6/uL (4.30-5.70) Hemoglobin 15.0 g/dL (13.0-17.5) Hematocrit 42.4 % (39.0-53.0) Mean Corpuscular Volume 102 fL (79-100) Mean Corpuscular Hemoglobin 36 pg (25-35) Mean Corpuscular Hemoglobin Concent 35 g/dL (31-37) Red Cell Distribution Width 13.2 % (11.5-14.5) Platelet Count 104 x10^3/uL (140-400) Neutrophils (%) (Auto) 76 % (31-73) Lymphocytes (%) (Auto) 15 % (24-48) Monocytes (%) (Auto) 9 % (0-9) Eosinophils (%) (Auto) 0 % (0-3) Basophils (%) (Auto) 1 % (0-3) Neutrophils # (Auto) 5.9 x10^3/uL (1.8-7.7) Lymphocytes # (Auto) 1.1 x10^3/uL (1.0-4.8) Monocytes # (Auto) 0.7 x10^3/uL (0.0-1.1) Eosinophils # (Auto) 0.0 x10^3/uL (0.0-0.7) Basophils # (Auto) 0.1 x10^3/uL (0.0-0.2) Sodium Level 133 mmol/L (136-145) Potassium Level 3.1 mmol/L (3.5-5.1) Chloride Level 99 mmol/L (98-107) Carbon Dioxide Level 24 mmol/L (21-32) Anion Gap 10 (6-14) Blood Urea Nitrogen 9 mg/dL (8-26) Creatinine 0.9 mg/dL (0.7-1.3) Estimated GFR (Cockcroft-Gault) 88.6 BUN/Creatinine Ratio 10 (6-20) Glucose Level 167 mg/dL (70-99) Lactic Acid Level 2.1 mmol/L (0.4-2.0) 2.0 mmol/L (0.4-2.0) Calcium Level 7.7 mg/dL (8.5-10.1) Ferritin 1944 ng/mL (26-388) Total Bilirubin 2.3 mg/dL (0.2-1.0) Aspartate Amino Transf (AST/SGOT) 92 U/L (15-37) Alanine Aminotransferase (ALT/SGPT) 34 U/L (16-63) Alkaline Phosphatase 194 U/L (46-116) Creatine Kinase 92 U/L (39-308) C-Reactive Protein, Quantitative 231.3 mg/L (0-3.3) Total Protein 6.4 g/dL (6.4-8.2) Albumin 2.0 g/dL (3.4-5.0) Albumin/Globulin Ratio 0.5 (1.0-1.7) Procalcitonin 3.65 ng/mL (0.00-0.10) Glucose (Fingerstick) 170 mg/dL (70-99) 139 mg/dL (70-99) Test 10/23/19 04:00 10/23/19 08:16 10/23/19 10:55 Urine Collection Type Unknown Urine Color Yellow Urine Clarity Clear Urine pH 6.0 (<5.0-8.0) Urine Specific [place] 1.015 (1.000-1.030) Urine Protein Negative mg/dL (NEG-TRACE) Urine Glucose (UA) Negative mg/dL (NEG) Urine Ketones (Stick) Negative mg/dL (NEG) Urine Blood Moderate (NEG) Urine Nitrite Negative (NEG) Urine Bilirubin Negative (NEG) Urine Urobilinogen Dipstick 0.2 mg/dL (0.2 mg/dL) Urine Leukocyte Esterase Negative (NEG) Urine RBC 6-10 /HPF (0-2) Urine WBC Occ /HPF (0-4) Urine Squamous Epithelial Cells Occ /LPF Urine Bacteria 0 /HPF (0-FEW) Urine Mucus Slight /LPF Glucose (Fingerstick) 123 mg/dL (70-99) 165 mg/dL (70-99) Laboratory Tests Test 10/22/19 14:25 10/22/19 17:00 10/23/19 04:00 10/23/19 08:16 Lactic Acid Level 2.0 mmol/L (0.4-2.0) Glucose (Fingerstick) 139 mg/dL (70-99) 123 mg/dL (70-99) Urine Collection Type Unknown Urine Color Yellow Urine Clarity Clear Urine pH 6.0 (<5.0-8.0) Urine Specific [place] 1.015 (1.000-1.030) Urine Protein Negative mg/dL (NEG-TRACE) Urine Glucose (UA) Negative mg/dL (NEG) Urine Ketones (Stick) Negative mg/dL (NEG) Urine Blood Moderate (NEG) Urine Nitrite Negative (NEG) Urine Bilirubin Negative (NEG) Urine Urobilinogen Dipstick 0.2 mg/dL (0.2 mg/dL) Urine Leukocyte Esterase Negative (NEG) Urine RBC 6-10 /HPF (0-2) Urine WBC Occ /HPF (0-4) Urine Squamous Epithelial Cells Occ /LPF Urine Bacteria 0 /HPF (0-FEW) Urine Mucus Slight /LPF Test 10/23/19 10:55 Glucose (Fingerstick) 165 mg/dL (70-99) Impression . 1. Acute hypoxic respiratory failure secondary to suspected COVID-19 pneumonia. initial test neg 2. Persistent fevers 3. Long history of tobacco use, suspect underlying chronic obstructive pulmonary disease. 4. Abnormal LFTs, could be related to COVID infection. 5. Mild acute kidney injury, likely due to dehydration. Could be related to COVID-19. 6. Hypomagnesemia. 7. Moderate protein-calorie malnutrition. 8. Thrombocytopenia. Plan . 1. Continue with present oxygen to keep saturation 92 and above. on RA now 2. Broad spectrum antibiotic per Infectious Disease. COVID test is repeated. Initial rest neg 3. Lovenox for DVT prophylaxis. 4. Monitor LFTs. 5. Monitor platelet count. 6. Monitor fever 7. Discussed with RN. This patient was seen during the COVID-19 pandemic. COVID-19 diagnosis was suspected on initial presentation. BRANDEN PARTIDA MD Oct 23, 2019 11:34
--- NOTE | 2019-10-23 14:22 | PDOC ---
PROGRESS NOTES Chief Complaint Chief Complaint Patchy airspace disease at the right lung base may represent pulmonary infiltrate /PNEUMONIA diabetes Hypokalemia Morbid obesity transaminitis Tobacco abuse disorder Acute hypoxic resp failure Mild acute kidney injury, likely due to dehydration. Could be related to COVID- 19. Hypomagnesemia. Moderate protein-calorie malnutrition. Thrombocytopenia. PLAN ADMIT COVID-19 SCREEN Follow recommendations from infectious disease environmental remediation consultant as follows: Plan of Care DC Zosyn Completed azithromycin Start empiric Levaquin and monitor for one more day Follow-up CT chest results Follow-up urine Legionella and streptococcal antigen Follow-up repeat COVID pending Follow-up BC Maintain aspiration precautions Droplet precautions till COVID-19 r/o History of Present Illness History of Present Illness 10/22/2019 No acute events reported overnight, case discussed with nursing staff patient in no acute distress no complaints during my visit, COVID test is being repeated overall hoping to be discharged soon 10/21/2019 Patient with no acute events reported overnight, no fever or chills, seems to be stable, no new complaints. 10/22/2019 Patient with no new complaints still feels kind of under the weather. Hoping to be discharged soon. He also has requested time off from work until November 03 since he does not feel he can go back to work which requires a lot of physical activity, reassurance provided Vitals Vitals Vital Signs Date Time Temp Pulse Resp B/P (MAP) Pulse Ox O2 Delivery O2 Flow Rate FiO2 10/23/19 11:00 96.8 81 20 129/90 (103) 95 Room Air 96.8 10/23/19 07:49 2.0 Physical Exam Physical Exam GENERAL: The patient is alert, appears comfortable. HEENT: Pupils equally round. Oropharynx: [place] and moist. No lesions seen. NECK: Supple. LUNGS: Coarse right lower lobe. No accessory muscle use. HEART: S1 and S2, regular. ABDOMEN: Obese, soft, nontender. No rebound. Bowel sounds present. EXTREMITIES: No gross edema or cyanosis. SKIN: Warm to touch. No signs of rash. NEUROLOGIC: Alert and answering questions appropriately. General: Alert, Oriented X3, Cooperative, No acute distress Abdomen: Soft Extremities: No cyanosis, No edema Labs LABS Laboratory Tests Test 10/22/19 14:25 10/22/19 17:00 10/23/19 04:00 10/23/19 08:16 Lactic Acid Level 2.0 mmol/L (0.4-2.0) Glucose (Fingerstick) 139 mg/dL (70-99) 123 mg/dL (70-99) Urine Collection Type Unknown Urine Color Yellow Urine Clarity Clear Urine pH 6.0 (<5.0-8.0) Urine Specific [place] 1.015 (1.000-1.030) Urine Protein Negative mg/dL (NEG-TRACE) Urine Glucose (UA) Negative mg/dL (NEG) Urine Ketones (Stick) Negative mg/dL (NEG) Urine Blood Moderate (NEG) Urine Nitrite Negative (NEG) Urine Bilirubin Negative (NEG) Urine Urobilinogen Dipstick 0.2 mg/dL (0.2 mg/dL) Urine Leukocyte Esterase Negative (NEG) Urine RBC 6-10 /HPF (0-2) Urine WBC Occ /HPF (0-4) Urine Squamous Epithelial Cells Occ /LPF Urine Bacteria 0 /HPF (0-FEW) Urine Mucus Slight /LPF Test 10/23/19 10:55 Glucose (Fingerstick) 165 mg/dL (70-99) Assessment and Plan Assessmemt and Plan Problems Medical Problems: (1) Pneumonia Status: Acute (2) Suspected 2019-nCoV infection Status: Acute Comment Review of Relevant I have reviewed the following items laura (where applicable) has been applied. Labs Laboratory Tests Test 10/21/19 16:45 10/21/19 20:42 10/22/19 07:46 10/22/19 10:45 Glucose (Fingerstick) 191 mg/dL (70-99) 143 mg/dL (70-99) 102 mg/dL (70-99) White Blood Count 7.9 x10^3/uL (4.0-11.0) Red Blood Count 4.17 x10^6/uL (4.30-5.70) Hemoglobin 15.0 g/dL (13.0-17.5) Hematocrit 42.4 % (39.0-53.0) Mean Corpuscular Volume 102 fL (79-100) Mean Corpuscular Hemoglobin 36 pg (25-35) Mean Corpuscular Hemoglobin Concent 35 g/dL (31-37) Red Cell Distribution Width 13.2 % (11.5-14.5) Platelet Count 104 x10^3/uL (140-400) Neutrophils (%) (Auto) 76 % (31-73) Lymphocytes (%) (Auto) 15 % (24-48) Monocytes (%) (Auto) 9 % (0-9) Eosinophils (%) (Auto) 0 % (0-3) Basophils (%) (Auto) 1 % (0-3) Neutrophils # (Auto) 5.9 x10^3/uL (1.8-7.7) Lymphocytes # (Auto) 1.1 x10^3/uL (1.0-4.8) Monocytes # (Auto) 0.7 x10^3/uL (0.0-1.1) Eosinophils # (Auto) 0.0 x10^3/uL (0.0-0.7) Basophils # (Auto) 0.1 x10^3/uL (0.0-0.2) Sodium Level 133 mmol/L (136-145) Potassium Level 3.1 mmol/L (3.5-5.1) Chloride Level 99 mmol/L (98-107) Carbon Dioxide Level 24 mmol/L (21-32) Anion Gap 10 (6-14) Blood Urea Nitrogen 9 mg/dL (8-26) Creatinine 0.9 mg/dL (0.7-1.3) Estimated GFR (Cockcroft-Gault) 88.6 BUN/Creatinine Ratio 10 (6-20) Glucose Level 167 mg/dL (70-99) Lactic Acid Level 2.1 mmol/L (0.4-2.0) Calcium Level 7.7 mg/dL (8.5-10.1) Ferritin 1944 ng/mL (26-388) Total Bilirubin 2.3 mg/dL (0.2-1.0) Aspartate Amino Transf (AST/SGOT) 92 U/L (15-37) Alanine Aminotransferase (ALT/SGPT) 34 U/L (16-63) Alkaline Phosphatase 194 U/L (46-116) Creatine Kinase 92 U/L (39-308) C-Reactive Protein, Quantitative 231.3 mg/L (0-3.3) Total Protein 6.4 g/dL (6.4-8.2) Albumin 2.0 g/dL (3.4-5.0) Albumin/Globulin Ratio 0.5 (1.0-1.7) Procalcitonin 3.65 ng/mL (0.00-0.10) Test 10/22/19 11:08 10/22/19 14:25 10/22/19 17:00 10/23/19 04:00 Glucose (Fingerstick) 170 mg/dL (70-99) 139 mg/dL (70-99) Lactic Acid Level 2.0 mmol/L (0.4-2.0) Urine Collection Type Unknown Urine Color Yellow Urine Clarity Clear Urine pH 6.0 (<5.0-8.0) Urine Specific [place] 1.015 (1.000-1.030) Urine Protein Negative mg/dL (NEG-TRACE) Urine Glucose (UA) Negative mg/dL (NEG) Urine Ketones (Stick) Negative mg/dL (NEG) Urine Blood Moderate (NEG) Urine Nitrite Negative (NEG) Urine Bilirubin Negative (NEG) Urine Urobilinogen Dipstick 0.2 mg/dL (0.2 mg/dL) Urine Leukocyte Esterase Negative (NEG) Urine RBC 6-10 /HPF (0-2) Urine WBC Occ /HPF (0-4) Urine Squamous Epithelial Cells Occ /LPF Urine Bacteria 0 /HPF (0-FEW) Urine Mucus Slight /LPF Test 10/23/19 08:16 10/23/19 10:55 Glucose (Fingerstick) 123 mg/dL (70-99) 165 mg/dL (70-99) Laboratory Tests Test 10/22/19 14:25 10/22/19 17:00 10/23/19 04:00 10/23/19 08:16 Lactic Acid Level 2.0 mmol/L (0.4-2.0) Glucose (Fingerstick) 139 mg/dL (70-99) 123 mg/dL (70-99) Urine Collection Type Unknown Urine Color Yellow Urine Clarity Clear Urine pH 6.0 (<5.0-8.0) Urine Specific [place] 1.015 (1.000-1.030) Urine Protein Negative mg/dL (NEG-TRACE) Urine Glucose (UA) Negative mg/dL (NEG) Urine Ketones (Stick) Negative mg/dL (NEG) Urine Blood Moderate (NEG) Urine Nitrite Negative (NEG) Urine Bilirubin Negative (NEG) Urine Urobilinogen Dipstick 0.2 mg/dL (0.2 mg/dL) Urine Leukocyte Esterase Negative (NEG) Urine RBC 6-10 /HPF (0-2) Urine WBC Occ /HPF (0-4) Urine Squamous Epithelial Cells Occ /LPF Urine Bacteria 0 /HPF (0-FEW) Urine Mucus Slight /LPF Test 10/23/19 10:55 Glucose (Fingerstick) 165 mg/dL (70-99) Microbiology 10/22/19 Blood Culture - Preliminary, Resulted NO GROWTH AFTER 1 DAY Medications Current Medications Ceftriaxone Sodium (Rocephin) 1 gm 1X ONCE IVP Last administered on 10/20/19at 10:23; Start 10/20/19 at 09:45; Stop 10/20/19 at 09:58; Status DC Azithromycin 250 ml @ 250 mls/hr 1X ONCE IV Last administered on 10/20/19at 09:45; Start 10/20/19 at 09:45; Stop 10/20/19 at 10:44; Status DC Sodium Chloride 1,000 ml @ 1,000 mls/hr 1X ONCE IV Last administered on 10/20/19at 10:20; Start 10/20/19 at 09:45; Stop 10/20/19 at 10:44; Status DC Magnesium Sulfate 50 ml @ 25 mls/hr 1X ONCE IV Last administered on 10/20/19at 10:21; Start 10/20/19 at 09:45; Stop 10/20/19 at 11:44; Status DC Potassium Chloride (Klor-Con) 40 meq 1X ONCE PO Last administered on 10/20/19at 12:56; Start 10/20/19 at 10:45; Stop 10/20/19 at 10:48; Status DC Potassium Chloride (Klor-Con) 20 meq 1X ONCE PO Last administered on 10/20/19at 13:00; Start 10/20/19 at 10:45; Stop 10/20/19 at 10:48; Status DC Insulin Human Lispro (HumaLOG) 0-5 UNITS TIDWMEALS SQ Last administered on 10/23/19at 12:04; Start 10/20/19 at 12:00 Dextrose (Dextrose 50%-Water Syringe) 12.5 gm PRN Q15MIN PRN IV SEE COMMENTS; Start 10/20/19 at 10:45 Ibuprofen (Motrin) 800 mg 1X ONCE PO Last administered on 10/20/19at 10:56; Start 10/20/19 at 11:00; Stop 10/20/19 at 11:01; Status DC Sodium Chloride (Normal Saline Flush) 3 ml QSHIFT PRN IV AFTER MEDS AND BLOOD DRAWS; Start 10/20/19 at 11:00 Sodium Chloride 1,000 ml @ 100 mls/hr Q10H IV Last administered on 10/23/19at 09:19; Start 10/20/19 at 10:56 Ondansetron HCl (Zofran) 4 mg PRN Q4HRS PRN IV NAUSEA/VOMITING Last administered on 10/20/19at 13:03; Start 10/20/19 at 11:00 Acetaminophen (Tylenol) 650 mg PRN Q4HRS PRN PO TEMP OVER 100.4F OR MILD PAIN Last administered on 10/22/19at 15:02; Start 10/20/19 at 11:00 Al Hydroxide/Mg Hydroxide (Mylanta Plus Xs) 30 ml PRN DAILY PRN PO HEARTBURN / GAS; Start 10/20/19 at 11:00 Clonidine HCl (Catapres) 0.1 mg PRN Q6HRS PRN PO SBP>160 OR DBP>90; Start 10/20/19 at 11:00 Sodium Monofluorophosphate (Fleet Adult) 133 ml PRN DAILY PRN [place] CONSTIPATION; Start 10/20/19 at 11:00 Docusate Sodium (Colace) 100 mg PRN BID PRN PO HARD STOOLS; Start 10/20/19 at 11:00 Albuterol Sulfate (Ventolin Neb Soln) 2.5 mg PRN Q4HRS PRN NEB SHORTNESS OF BREATH; Start 10/20/19 at 11:00 Guaifenesin (Robitussin) 200 mg PRN Q4HRS PRN PO COUGH; Start 10/20/19 at 11:00 Enoxaparin Sodium (Lovenox 40mg Syringe) 40 mg Q24H SQ Last administered on 10/23/19at 10:51; Start 10/20/19 at 11:00 Ceftriaxone Sodium (Rocephin) 1 gm Q24H IVP Last administered on 10/21/19at 10:13; Start 10/21/19 at 10:00; Stop 10/21/19 at 11:52; Status DC Azithromycin (Zithromax) 500 mg DAILY PO Last administered on 10/23/19at 09:19; Start 10/21/19 at 09:00; Stop 10/23/19 at 09:01; Status DC Piperacillin Sod/ Tazobactam Sod 3.375 gm/Sodium Chloride 50 ml @ 100 mls/hr Q6HRS IV Last administered on 10/23/19at 05:29; Start 10/21/19 at 12:00; Stop 10/23/19 at 11:10; Status DC Lactobacillus Rhamnosus (Culturelle) 1 cap BID PO Last administered on 10/23/19at 09:19; Start 10/21/19 at 21:00 Potassium Chloride (Klor-Con) 40 meq 1X ONCE PO Last administered on 10/22/19at 14:55; Start 10/22/19 at 14:45; Stop 10/22/19 at 14:51; Status DC Potassium Chloride (Klor-Con) 40 meq 1X ONCE PO Last administered on 10/22/19at 17:13; Start 10/22/19 at 16:45; Stop 10/22/19 at 16:46; Status DC Potassium Chloride (Klor-Con) 40 meq 1X ONCE PO Last administered on 10/22/19at 18:55; Start 10/22/19 at 18:45; Stop 10/22/19 at 18:46; Status DC Levofloxacin (Levaquin) 750 mg DAILY06 PO Last administered on 10/23/19at 12:17; Start 10/23/19 at 12:30 Vitals/I & O Vital Sign - Last 24 Hours 10/22/19 10/22/19 10/22/19 10/23/19 15:00 20:00 22:00 03:00 Temp 101.8 98.2 98.6 101.8 98.2 98.6 Pulse 96 84 88 Resp 20 20 26 B/P (MAP) 145/73 (97) 118/65 (82) 115/72 (86) Pulse Ox 97 97 93 O2 Delivery Nasal Cannula Nasal Cannula Nasal Cannula O2 Flow Rate 2.0 2.0 2.0 10/23/19 10/23/19 10/23/19 10/23/19 07:00 07:49 08:00 11:00 Temp 96.1 96.8 96.1 96.8 Pulse 74 81 Resp 20 20 B/P (MAP) 133/84 (100) 129/90 (103) Pulse Ox 95 92 95 O2 Delivery Nasal Cannula Nasal Cannula Room Air Room Air O2 Flow Rate 2.0 2.0 Intake and Output 10/22/19 10/22/19 10/23/19 15:00 23:00 07:00 Intake Total 400 ml 1200 ml Output Total 1050 ml 500 ml 600 ml Balance -1050 ml -100 ml 600 ml SAUL VIDAL MD Oct 23, 2019 14:22
--- NOTE | 2019-10-23 14:40 | NUR ---
SW following for discharge planning. SW spoke with RN and reviewed chart. Pt will not discharge today. Pt remains on IV abx. SW to continue following.
[2019-10-23 15:00] VITALS: BP 146/91
--- NOTE | 2019-10-23 16:17 | NUR ---
Notified Dr. Tracy at 1502 of patient's COVID test which was positive Addendum: 10/23/19 at 1701 by JENSEN MONTEZ RN Dr. Kyler Molina informed of COVID test result at 1658, no new orders received. The patient has stable VS, tolerating room air , O2 sats 92-96%
[2019-10-23 19:00] VITALS: BP 132/82
[2019-10-23] MEDS: ACETAMINOPHEN 325 MG TABLET. PO PRN (20:19)
[2019-10-23 23:00] VITALS: BP 135/81
[2019-10-24 03:00] VITALS: BP 133/83
[2019-10-24] MEDS: IV NORMAL SALINE 1000ML BAG 1,000 ML IV SCH (03:41)
[2019-10-24 07:00] VITALS: BP 145/86
[2019-10-24] MEDS: INSULIN LISPRO 300 UNITS/3 ML VIAL. SQ SCH (07:43)
[2019-10-24] MEDS: LACTOBACILLUS RHAMNOSUS GG 1 CAPSULE. PO SCH (08:07)
--- NOTE | 2019-10-24 10:57 | PDOC ---
Infectious Disease Note Subjective: Subjective Patient feels much better Remains on room air No fever for last 36 hours Eager for discharge home today Cough is improving No chest pain Denies headache , sore throat ,nausea, vomiting, shortness of breath, diarrhea, abdominal pain, rash, symptoms, aches or pains Otherwise as above Vital Signs: Vital Signs Vital Signs Date Time Temp Pulse Resp B/P (MAP) Pulse Ox O2 Delivery O2 Flow Rate FiO2 10/24/19 08:00 Room Air 10/24/19 07:00 96.5 73 16 145/86 (105) 93 96.5 10/23/19 07:49 2.0 Physical Exam: PHYSICAL EXAM GENERAL: The patient is alert, appears comfortable. HEENT: Pupils equally round. Oropharynx: [place] and moist. No lesions seen. NECK: Supple. LUNGS: Coarse right lower lobe. No accessory muscle use. HEART: S1 and S2, regular. ABDOMEN: Obese, soft, nontender. No rebound. Bowel sounds present. EXTREMITIES: No gross edema or cyanosis. SKIN: Warm to touch. No signs of rash. NEUROLOGIC: Alert and answering questions appropriately. Medications: Inpatient Meds: Current Medications Medications (Trade) Dose Ordered Sig/Maureen Start Time Stop Time Status Last Admin Dose Admin Acetaminophen (Tylenol) 650 mg PRN Q4HRS PRN 10/20/19 11:00 10/23/19 20:19 650 MG Al Hydroxide/Mg Hydroxide (Mylanta Plus Xs) 30 ml PRN DAILY PRN 10/20/19 11:00 Albuterol Sulfate (Ventolin Neb Soln) 2.5 mg PRN Q4HRS PRN 10/20/19 11:00 Azithromycin (Zithromax) 500 mg DAILY 10/21/19 09:00 10/23/19 09:01 DC 10/23/19 09:19 500 MG Ceftriaxone Sodium (Rocephin) 1 gm Q24H 10/21/19 10:00 10/21/19 11:52 DC 10/21/19 10:13 1 GM Clonidine HCl (Catapres) 0.1 mg PRN Q6HRS PRN 10/20/19 11:00 Dextrose (Dextrose 50%-Water Syringe) 12.5 gm PRN Q15MIN PRN 10/20/19 10:45 Docusate Sodium (Colace) 100 mg PRN BID PRN 10/20/19 11:00 Enoxaparin Sodium (Lovenox 40mg Syringe) 40 mg Q24H 10/20/19 11:00 10/23/19 10:51 40 MG Guaifenesin (Robitussin) 200 mg PRN Q4HRS PRN 10/20/19 11:00 10/23/19 21:04 200 MG Ibuprofen (Motrin) 800 mg 1X ONCE 10/20/19 11:00 10/20/19 11:01 DC 10/20/19 10:56 800 MG Insulin Human Lispro (HumaLOG) 0-5 UNITS TIDWMEALS 10/20/19 12:00 10/23/19 12:04 2 UNITS Lactobacillus Rhamnosus (Culturelle) 1 cap BID 10/21/19 21:00 10/24/19 08:07 1 CAP Levofloxacin (Levaquin) 750 mg DAILY06 10/23/19 12:30 10/24/19 05:46 750 MG Magnesium Sulfate 50 ml @ 25 mls/hr 1X ONCE 10/20/19 09:45 10/20/19 11:44 DC 10/20/19 10:21 25 MLS/HR Ondansetron HCl (Zofran) 4 mg PRN Q4HRS PRN 10/20/19 11:00 10/20/19 13:03 4 MG Piperacillin Sod/ Tazobactam Sod 3.375 gm/Sodium Chloride 50 ml @ 100 mls/hr Q6HRS 10/21/19 12:00 10/23/19 11:10 DC 10/23/19 05:29 100 MLS/HR Potassium Chloride (Klor-Con) 40 meq 1X ONCE 10/22/19 18:45 10/22/19 18:46 DC 10/22/19 18:55 40 MEQ Sodium Monofluorophosphate (Fleet Adult) 133 ml PRN DAILY PRN 10/20/19 11:00 Sodium Chloride 1,000 ml @ 100 mls/hr Q10H 10/20/19 10:56 10/24/19 03:41 100 MLS/HR Sodium Chloride (Normal Saline Flush) 3 ml QSHIFT PRN 10/20/19 11:00 Labs: Lab Laboratory Tests Test 10/23/19 10:55 10/23/19 16:37 6/10/20 20:55 10/24/19 07:19 Glucose (Fingerstick) 165 mg/dL (70-99) 145 mg/dL (70-99) 132 mg/dL (70-99) 128 mg/dL (70-99) Objective: Assessment: COVID 19 viral pneumonia, improved on room air Fever from COVID-19 resolved Leukocytosis and bandemia resolved Lactic acidosis resolved Abnormal LFTs, Hyperbilirubinemia. Thrombocytopenia. Electrolyte imbalances. Hyperglycemia. Tobacco dependency. Obesity. Plan: Plan of Care [facility] Discharge on empiric doxycycline for 5 days, prescription in chart Cancel CT chest results patient is clinically improving Follow-up urine Legionella and streptococcal antigen Okay to discharge home from ID standpoint Follow-up with PCP in 7 to 10 days D/w nursing d/w LAZ Hernandez MD Oct 24, 2019 10:57
[2019-10-24] MEDS: ENOXAPARIN 40 MG/0.4 ML SYRINGE. SQ SCH (11:00)
--- NOTE | 2019-10-24 11:14 | PDOC ---
PULMONARY PROGRESS NOTES Subjective afebrile, remains on room air, denies SOA or increased cough Vitals Vital Signs Date Time Temp Pulse Resp B/P (MAP) Pulse Ox O2 Delivery O2 Flow Rate FiO2 10/24/19 08:00 Room Air 10/24/19 07:00 96.5 73 16 145/86 (105) 93 96.5 10/23/19 07:49 2.0 Comments visual exam done due to COVID 19 suspicion no soa, no rash no edema General: Alert, No acute distress Labs Laboratory Tests Test 10/22/19 14:25 10/22/19 17:00 10/23/19 04:00 10/23/19 08:16 Lactic Acid Level 2.0 mmol/L (0.4-2.0) Glucose (Fingerstick) 139 mg/dL (70-99) 123 mg/dL (70-99) Urine Collection Type Unknown Urine Color Yellow Urine Clarity Clear Urine pH 6.0 (<5.0-8.0) Urine Specific [place] 1.015 (1.000-1.030) Urine Protein Negative mg/dL (NEG-TRACE) Urine Glucose (UA) Negative mg/dL (NEG) Urine Ketones (Stick) Negative mg/dL (NEG) Urine Blood Moderate (NEG) Urine Nitrite Negative (NEG) Urine Bilirubin Negative (NEG) Urine Urobilinogen Dipstick 0.2 mg/dL (0.2 mg/dL) Urine Leukocyte Esterase Negative (NEG) Urine RBC 6-10 /HPF (0-2) Urine WBC Occ /HPF (0-4) Urine Squamous Epithelial Cells Occ /LPF Urine Bacteria 0 /HPF (0-FEW) Urine Mucus Slight /LPF Test 10/23/19 10:55 10/23/19 16:37 10/23/19 20:55 10/24/19 07:19 Glucose (Fingerstick) 165 mg/dL (70-99) 145 mg/dL (70-99) 132 mg/dL (70-99) 128 mg/dL (70-99) Laboratory Tests Test 10/23/19 16:37 10/23/19 20:55 10/24/19 07:19 Glucose (Fingerstick) 145 mg/dL (70-99) 132 mg/dL (70-99) 128 mg/dL (70-99) Impression . 1. Acute hypoxic respiratory failure secondary to suspected COVID-19 pneumonia. initial test neg, repeat COVID positive on 10/22/2019 2. Persistent fevers-resolved 3. Long history of tobacco use, suspect underlying chronic obstructive pulmonary disease. 4. Abnormal LFTs, could be related to COVID infection- improved 5. Mild acute kidney injury, likely due to dehydration. Could be related to COVID-19.-resolved 6. Hypomagnesemia. 7. Moderate protein-calorie malnutrition. 8. Thrombocytopenia. Plan . Continue with present oxygen to keep saturation 92 and above. remains on room air --stable from pulmonary standpoint Broad spectrum antibiotic per Infectious Disease.COVID test positive on 10/22/2019-- will D/C Levaquin will D/C home on doxy Lovenox for DVT prophylaxis. Monitor fever- afebrile last 36 hours Discussed with RN. This patient was seen during the COVID-19 pandemic. Ok to D/C home from our standpoint BRANDEN PARTIDA MD Oct 24, 2019 11:14
--- NOTE | 2019-10-24 11:49 | NUR ---
Discharge Note: [facility] Discharge instructions and discharge home medications reviewed with Patient and a copy given. All questions have been answered and understanding verbalized. The following instructions and handouts were given: COVID Discontinued lines and drains: Peripheral IV intact. Patient discharged to Home or Self Care with Family Member via Wheelchair
--- NOTE | 2019-10-24 13:06 | NUR ---
SW following for discharge planning. SW reviewed chart and coordinated care with RN and Dr. Cortez. Pt to discharge today. Pt on room air and oral medications per RN. No additional SW needs at this time.
--- NOTE | 2019-10-24 14:04 | NUR ---
Patient DC'd prior to arrival of WC team
--- NOTE | 2019-10-24 15:04 | DS ---
DATE OF DISCHARGE: 10/24/2019 ADMISSION DIAGNOSIS: Pneumonia with possible COVID-19. DISCHARGE DIAGNOSIS: Resolving COVID-19 infection, resolving pneumonia, bipolar, hypertension. CONSULTS: Infectious Disease and Pulmonary. HOSPITAL COURSE: The patient is a pleasant middle-aged male, who presented with shortness of breath, cough and had pneumonia. He was admitted. He actually ruled in for COVID-19. We treated him with appropriate COVID-19 protocol. Today, I saw and examined him. He was at his baseline. PHYSICAL EXAMINATION: HEART: Tones are normal. LUNGS: Clear. EXTREMITIES: Showed no edema. PLAN: We plan to discharge with close outpatient followup. DISPOSITION: Home. ACTIVITY: As tolerated. DIET: Low sodium. MEDICATIONS: Please see the MRAD. TOTAL TIME: 32 minutes. DARRI[address] LOU DO [address]: BIBI/autumn JOB#: [id number] / [id number]
== END 2019-10-24 12:29 | disposition home or self-care (01) | DRG 177 ==
LOC: ER 08:00 → 6 SOUTH 10:40
PROVIDERS: ADMIT Family Medicine; ATTEND Family Medicine
DX: U07.1 COVID-19 (principal); J96.01 Acute respiratory failure with hypoxia; J12.89 Other viral pneumonia; N17.9 Acute kidney failure, unspecified; E44.0 Moderate protein-calorie malnutrition; E87.2 Acidosis; R17 Unspecified jaundice; E87.6 Hypokalemia; D72.825 Bandemia; Z68.38 Body mass index [BMI] 38.0-38.9, adult; R74.0 Nonspecific elevation of levels of transaminase and lactic acid dehydrogenase [LDH]; E66.01 Morbid (severe) obesity due to excess calories; E83.42 Hypomagnesemia; E87.8 Other disorders of electrolyte and fluid balance, not elsewhere classified; D69.6 Thrombocytopenia, unspecified; F17.210 Nicotine dependence, cigarettes, uncomplicated; E11.65 Type 2 diabetes mellitus with hyperglycemia; I10 Essential (primary) hypertension; Z83.3 Family history of diabetes mellitus; Z82.49 Family history of ischemic heart disease and other diseases of the circulatory system; F31.9 Bipolar disorder, unspecified; Z83.49 Family history of other endocrine, nutritional and metabolic diseases
CPT/HCPCS: 36415; 71045; 80053; 81001; 82550; 82728; 82962; 83605; 83690; 83735; 83880; 84145; 84484; 85007; 85025; 85379; 85384; 85610; 85730; 86140; 86705; 86709; 86803; 87040; 87340; 87449; 93005; 94760; 96365; 96368; 96375; 99285; J0456; J0696; J1650; J1815; J2405; J2543; J3475; J7030; G0378; U0003-CS

== ENCOUNTER 2020-05-11 10:46 | Emergency (ER) | payer OTHER ==
[~2020-05-11] VITALS: Ht 166.6 cm; Wt 111.4 kg
--- NOTE | 2020-05-11 11:15 | PHYS DOC ---
Past Medical History Past Medical History: No Pertinent History Past Surgical History: No Surgical History Smoking Status: Current Every Day Smoker Alcohol Use: Occasionally General Adult EDM: Chief Complaint: GI PROBLEM HPI: HPI: Patient is a 54 year old male current smoker who presents to the ED today complaining of rectal bleeding intermittently for "weeks" patient unable to narrow down how many weeks. Patient states today he got some time off work and decided to come to the ED to be evaluated. Denies any abdominal pain, denies any nausea vomiting. Is also complaining of rectal itching. Denies any rectal pain. Review of Systems: Review of Systems: Constitutional: Denies fever or chills. [] Eyes: Denies change in visual acuity. [] HENT: Denies nasal congestion or sore throat. [] Respiratory: Denies cough or shortness of breath. [] Cardiovascular: Denies chest pain or edema. [] GI: Reports rectal bleeding. Denies abdominal pain, nausea, vomiting, bloody stools or diarrhea. [] : Denies dysuria. [] Musculoskeletal: Denies back pain or joint pain. [] Integument: Denies rash. [] Neurologic: Denies headache, focal weakness or sensory changes. [] Endocrine: Denies polyuria or polydipsia. [] Lymphatic: Denies swollen glands. [] Psychiatric: Denies depression or anxiety. [] Heart Score: Risk Factors: Risk Factors: DM, Current or recent (<one month) smoker, HTN, HLP, family history of CAD, obesity. Risk Scores: Score 0 - 3: 2.5% MACE over next 6 weeks - Discharge Home Score 4 - 6: 20.3% MACE over next 6 weeks - Admit for Clinical Observation Score 7 - 10: 72.7% MACE over next 6 weeks - Early Invasive Strategies Allergies: Allergies: Allergies Coded Allergies Type Severity Reaction Last Updated Verified No Known Drug Allergies 10/20/19 No Physical Exam: PE: Constitutional: Well developed, well nourished, no acute distress, non-toxic appearance. [] HENT: Normocephalic, atraumatic, bilateral external ears normal, oropharynx moist, no oral exudates, nose normal. [] Eyes: PERRLA, EOMI, conjunctiva normal, no discharge. [] Neck: Normal range of motion, no tenderness, supple, no stridor. [] Cardiovascular:Heart rate regular rhythm, no murmur [] Lungs & Thorax: Bilateral breath sounds clear to auscultation [] Abdomen: Bowel sounds normal, soft, no tenderness, no masses, no pulsatile masses. [] Rectal exam External rectum is excoriated. Small amount of tiny hemorrhoids noted externally. Some internal hemorrhoids palpable. No major masses palpable. Skin: Warm, dry, no erythema, no rash. [] Back: No tenderness, no CVA tenderness. [] Extremities: No tenderness, no cyanosis, no clubbing, ROM intact, no edema. [] Neurologic: Alert and oriented X 3, normal motor function, normal sensory function, no focal deficits noted. [] Psychologic: Affect normal, judgement normal, mood normal. [] EKG: EKG: [] Radiology/Procedures: Radiology/Procedures: [] PATIENT: ZOEY STACYACCOUNT: [id number] : 1965 LOCATION: ER AGE: 54 SEX: M EXAM STATUS: REG ER ORD. PHYSICIAN: BETO LOYD APRN REASON: rectal bleeding PROCEDURE: CT ABD PELV W/ IV CONTRST ONLY Study: CT abdomen/pelvis with intravenous contrast Indication: Rectal bleeding. Comparison: None. Technique: Helical CT imaging performed of the abdomen and pelvis after the intravenous administration of 75 cc Omnipaque 300 contrast. Sagittal and coronal reformats were obtained. One or more of the following individualized dose reduction techniques were utilized for this examination: 1. Automated exposure control 2. Adjustment of the mA and/or kV according to patient size 3. Use of iterative reconstruction technique. Findings: Chest: Asymmetric elevation of the right hemidiaphragm. Liver: Hepatic steatosis. Undulating hepatic margins could indicate cirrhosis. No focal parenchymal abnormality. Gallbladder/Biliary Tree: Mildly distended but without CT manifestations of acute cholecystitis. Within normal limits biliary tree. Pancreas: Unremarkable. Spleen: Mildly enlarged at 14 cm craniocaudal. Adrenal Glands: Unremarkable. Kidneys/Ureters/Bladder: No complex renal cyst or mass. No hydronephrosis. Poorly evaluated urinary bladder due to underdistention. Reproductive Organs: Unremarkable prostate with respect to size. Colon: Several diverticuli without evidence for diverticulitis. The colonic mucosa is not fully evaluated without oral contrast and given segments of luminal collapse such as at the proximal sigmoid colon. Mild volume well-formed stool within the rectum. Appendix: No inflammatory changes along its expected course. Small Bowel: Nonobstructed. Stomach: Within normal limits. Vasculature: Nonaneurysmal aorta. Minimal atheromatous plaque. Lymph Nodes: Somewhat supernumerary retroperitoneal lymph nodes but not meeting pathologic criteria based on size. Within normal limits upper abdominal and mesenteric lymph nodes. No iliac chain or inguinal adenopathy. Peritoneum and Body Wall: No free fluid or pneumoperitoneum. Bones: No acute or aggressive osseous process. Scattered degenerative changes collectively greatest from L3-L4 through L5-S1. Central canal narrowing most notable at L3-L4 and L4-L5 appears to be at least moderate. At least moderate lower lumbar osseous neural foraminal encroachment. Miscellaneous: None. Impression: 1. Several colonic diverticuli but without findings of diverticulitis. The exact cause of the patient's reported rectal bleeding is not able to be discerned on this exam. If there is ongoing concern a tagged RBC scan could be performed. 2. Hepatic steatosis. The liver exhibits undulating margins which could indicate cirrhosis as well. Mild splenomegaly. Electronically signed by: GABI PAGAN MD (05/11/2020 12:37 PM) [id number] DICTATED and SIGNED BY: GABI PAGAN MD DATE: 05/11/20 [id number] 0 Course & Med Decision Making: Course & Med Decision Making Pertinent Labs and Imaging studies reviewed. (See chart for details) This is a 54-year-old male patient presenting to the ED today complaining of rectal bleeding on and off for weeks. CBC with a normal WBC, normal hemoglobin and hematocrit, CMP with a glucose of 268, no previous history of diabetes. Anion gap is normal. Urine analysis shows patient is dehydrated, no infection. Patient was given a liter of fluid in the ED. Positive Hemoccult. Physical exam noted for hemorrhoids. CT of the abdomen and pelvic was negative for any acute findings, noted for possible liver cirrhosis, diverticulosis, and mild splenomegaly. Patient has a PCP who requested a copy of his results which were given to him prior to discharge. He will follow-up in the course of this week. Discussed methods of managing hemorrhoids including prevention of constipation. Dragmariam Disclaimer: Nam Disclaimer: This electronic medical record was generated, in whole or in part, using a voice recognition dictation system. Departure Departure Impression: Primary Impression: Hemorrhoids Qualified Codes: K64.9 - Unspecified hemorrhoids Additional Impressions: Splenomegaly Diverticulosis Disposition: 01 DC HOME SELF CARE/HOMELESS Condition: STABLE Referrals: LESIA COYNE (PCP) follow up as soon as you can Patient Instructions: Diverticulosis, Enlarged Spleen, Hemorrhoids Additional Instructions: You were evaluated in the emergency room and noted to have hemorrhoids. Your lab work was noted for high blood glucose. Please have your primary care doctor follow-up for this. Try to increase your dietary fiber intake as well as water intake and this will prevent constipation that may reduce hemorrhoids episodes. Use the rest of the medicines as prescribed. Scripts Polyethylene Glycol 3350 (MIRALAX) 17 Gm Powd.pack 1 PACKET PO DAILY for constipation for 2 Days, #2 PACKET 0 Refills dissolve in water Prov: BETO LOYD APRN 05/11/20 Lidocaine/Prilocaine (LIDOCAINE-PRILOCAINE CREAM) 30 Gm Cream..g. 1 MICHEL TP UD PRN for rectal pain, #30 GM 1 Refill Apply to rectal area for pain Prov: BETO LOYD APRN 05/11/20 Hydrocortisone Acetate (ANUSOL-HC) 25 Mg Supp.rect 1 SUPP RC BID for 14 Days, #28 SUPP 0 Refills Prov: BETO LOYD APRN 05/11/20 BETO LOYD APRN May 11, 2020 11:15
[2020-05-11 11:30] LABS: FECAL OB PT POSITIVE (NEG)
[2020-05-11 11:31] LABS: BASO # 0.1 x10^3/uL (0.0-0.2); BASO % 1 % (0-3); EOS # 0.2 x10^3/uL (0.0-0.7); EOS % 3 % (0-3); HEMATOCRIT 47.2 % (39.0-53.0); HEMOGLOBIN 16.6 g/dL (13.0-17.5); LYMPH # 2.6 x10^3/uL (1.0-4.8); LYMPH % 37 % (24-48); MEAN CORPUSCULAR HEMOGLOBIN 35 pg (25-35); MEAN CORPUSCULAR HGB CONC 35 g/dL (31-37); MEAN CORPUSCULAR VOLUME 100 fL (79-100); MONO # 0.9 x10^3/uL (0.0-1.1); MONO % 13 % (0-9); NEUT # 3.4 x10^3/uL (1.8-7.7); NEUT % 47 % (31-73); PLATELET COUNT 141 x10^3/uL (140-400); RED BLOOD COUNT 4.71 x10^6/uL (4.30-5.70); WHITE BLOOD COUNT 7.2 x10^3/uL (4.0-11.0)
[2020-05-11 11:40] LABS: CALCIUM 9.2 mg/dL (8.5-10.1); CREATININE 0.7 mg/dL (0.7-1.3); GFR 118.4; POTASSIUM 3.3 mmol/L (3.5-5.1)
[2020-05-11 11:46] LABS: ALBUMIN 3.2 g/dL (3.4-5.0); ALBUMIN/GLOBULIN RATIO 0.7 (1.0-1.7); MAGNESIUM 1.8 mg/dL (1.8-2.4); TOTAL BILIRUBIN 1.6 mg/dL (0.2-1.0); TOTAL PROTEIN 8.1 g/dL (6.4-8.2)
[2020-05-11 12:00] LABS: BILIRUBIN,URINE SMALL (NEG); CLARITY,URINE CLEAR; COLOR,URINE AMBER; NITRITE,URINE NEGATIVE (NEG); PROTEIN,URINE NEGATIVE (NEG-TRACE)
[2020-05-11] MEDS ORDERED: IOHEXOL 300 MG/ML 100ML VIAL. IV ONE (12:00)
[2020-05-11 12:01] LABS: BARBITURATES NEG (NEG); BENZODIAZEPINES NEG (NEG); CANNABINOIDS NEG (NEG); COCAINE NEG (NEG); METHADONE NEG (NEG); OPIATES NEG (NEG); PHENCYCLIDINE NEG (NEG)
[2020-05-11 12:14] LABS: AMPHETAMINE/METHAMPHETAMINE NEG (NEG); BACTERIA,URINE 0 /HPF (0-FEW); WBC,URINE OCC /HPF (0-4)
[2020-05-11] MEDS ORDERED: CONTRAST GIVEN. MC PRN (12:15)
[2020-05-11] MEDS ORDERED: FAMOTIDINE 20 MG/2 ML VIAL IVP ONE (12:30)
[2020-05-11] MEDS ORDERED: IV NORMAL SALINE 1000ML BAG 1,000 ML IV ONE (12:30)
--- NOTE | 2020-05-11 12:39 | RAD ---
Study: CT abdomen/pelvis with intravenous contrast Indication: Rectal bleeding. Comparison: None. Technique: Helical CT imaging performed of the abdomen and pelvis after the intravenous administratio n of 75 cc Omnipaque 300 contrast. Sagittal and coronal reformats were obtained. One or more of the following individualized dose reduction techniques were utilized for this examinat ion: 1. Automated exposure control 2. Adjustment of the mA and/or kV according to patient size 3. Use of iterative reconstruction technique. Findings: Chest: Asymmetric elevation of the right hemidiaphragm. Liver: Hepatic steatosis. Undulating hepatic margins could indicate cirrhosis. No focal parenchymal a bnormality. Gallbladder/Biliary Tree: Mildly distended but without CT manifestations of acute cholecystitis. With in normal limits biliary tree. Pancreas: Unremarkable. Spleen: Mildly enlarged at 14 cm craniocaudal. Adrenal Glands: Unremarkable. Kidneys/Ureters/Bladder: No complex renal cyst or mass. No hydronephrosis. Poorly evaluated urinary b ladder due to underdistention. Reproductive Organs: Unremarkable prostate with respect to size. Colon: Several diverticuli without evidence for diverticulitis. The colonic mucosa is not fully evalu ated without oral contrast and given segments of luminal collapse such as at the proximal sigmoid col on. Mild volume well-formed stool within the rectum. Appendix: No inflammatory changes along its expected course. Small Bowel: Nonobstructed. Stomach: Within normal limits. Vasculature: Nonaneurysmal aorta. Minimal atheromatous plaque. Lymph Nodes: Somewhat supernumerary retroperitoneal lymph nodes but not meeting pathologic criteria b ased on size. Within normal limits upper abdominal and mesenteric lymph nodes. No iliac chain or ingu inal adenopathy. Peritoneum and Body Wall: No free fluid or pneumoperitoneum. Bones: No acute or aggressive osseous process. Scattered degenerative changes collectively greatest f rom L3-L4 through L5-S1. Central canal narrowing most notable at L3-L4 and L4-L5 appears to be at k[address] st moderate. At least moderate lower lumbar osseous neural foraminal encroachment. Miscellaneous: None. Impression: 1. Several colonic diverticuli but without findings of diverticulitis. The exact cause of the patien t's reported rectal bleeding is not able to be discerned on this exam. If there is ongoing concern a tagged RBC scan could be performed. 2. Hepatic steatosis. The liver exhibits undulating margins which could indicate cirrhosis as well. Mild splenomegaly. Electronically signed by: GABI PAGAN MD (05/11/2020 12:37 PM) [id number]
[2020-05-11] MEDS ORDERED: POLY17PO29 PO (13:22)
[2020-05-11] MEDS ORDERED: LIDO30CR TP (13:22)
[2020-05-11] MEDS ORDERED: HYDR25SU18 RC (13:22)
[2020-05-11 13:27] VITALS: BP 148/85
== END 2020-05-11 13:37 | disposition home or self-care (01) ==
LOC: ER 10:46
DX: K62.5 Hemorrhage of anus and rectum (principal); R16.1 Splenomegaly, not elsewhere classified; K57.90 Diverticulosis of intestine, part unspecified, without perforation or abscess without bleeding; F17.200 Nicotine dependence, unspecified, uncomplicated
CPT/HCPCS: 36415; 74177; 80053; 80307; 81001; 82274; 83690; 83735; 85025; 96361; 96374; 99285; G0480; J3490; J7030; Q9967